=== PATIENT | male | born 1970 | race Caucasian/White ===

== ENCOUNTER 2016-12-10 19:05 | Inpatient (IN) | payer MEDICAID ==
[~2016-12-10] VITALS: Ht 182.9 cm; Wt 80.2 kg
[~2016-12-10 19:05] MED LIST: B CO PO; BACL-19 PO; DIAZ2TAB PO; DIPH25CA61 PO; DIVA125T2 PO; DOCU-131 PO; FAMO-79 PO; FOLI-17 PO; HYDR25CA PO; LITH300T3 PO; LORA-446 PO; MULT-750 PO; PHEN100C PO; PROP40TA PO; RISP1TAB45 PO; RISP2TAB35 PO; SERT100T PO; SERT50TA PO; THIA100T10 PO; TRAZ150T62 PO
[2016-12-10 19:31] LABS: DAU SCREEN DISCLAIMER
[2016-12-10 20:02] LABS: HEMOGLOBIN 13.2 g/dL (13.7-18.0); WHITE BLOOD COUNT 3.8 x10^3/uL (3.4-10)
[2016-12-10 20:14] LABS: ASPARTATE AMINO TRANSFERASE 111 U/L (15-37); BLOOD UREA NITROGEN 5 mg/dL (7-18)
[2016-12-10 20:16] LABS: ACETAMINOPHEN < 2 mcg/mL (10-30)
[2016-12-11] MEDS ORDERED: PROP10TA PO (13:49)
[2016-12-11] MEDS ORDERED: ONDANSETRON ODT 4 MG PO PRN (14:00)
[2016-12-11] MEDS ORDERED: LORazepam 1MG TABLET PO PRN ×3 (14:00)
[2016-12-11] MEDS ORDERED: ENOXAPARIN 40 MG/0.4 ML SQ SCH (14:00)
[2016-12-11] MEDS ORDERED: ONDANSETRON 2MG/ML, 2ML IVPush PRN (14:00)
[2016-12-11] MEDS ORDERED: LORazepam 2 MG/ML, 1ML IV PRN ×4 (14:00)
[2016-12-11] MEDS ORDERED: LORazepam 2 MG/ML, 1ML ONE (15:01)
[2016-12-11] MEDS ORDERED: POTASSIUM CHLORIDE 20 MEQ, MAGNESIUM SULFATE 1 GM, THIAMINE 100 MG, FOLIC ACID 1 MG, MV... IV SCH (16:30)
[2016-12-11 17:46] VITALS: BP 133/89
[2016-12-11] MEDS: ENOXAPARIN 40 MG/0.4 ML SQ SCH (18:24)
[2016-12-11] MEDS: CHLORDIAZEPOXIDE 10 MG CAPSULE PO SCH ×2 (18:24→21:27)
[2016-12-11 19:01] VITALS: BP 151/82
[2016-12-11] MEDS: LORazepam 0.5MG TABLET PO PRN (19:45)
[2016-12-11] MEDS: DIVALPROEX 125 MG TABLET.DR PO SCH (21:27)
[2016-12-12 05:19] VITALS: BP 132/89
[2016-12-12 05:20] LABS: HEMATOCRIT 39.2 % (39.2-51.8); HEMOGLOBIN 13.1 g/dL (13.7-18.0); WHITE BLOOD COUNT 3.8 x10^3/uL (3.4-10)
[2016-12-12 05:35] LABS: BLOOD UREA NITROGEN 11 mg/dL (7-18)
[2016-12-12 05:53] LABS: ASPARTATE AMINO TRANSFERASE 63 U/L (15-37)
[2016-12-12 08:02] VITALS: BP 133/86
[2016-12-12] MEDS: PROPRANOLOL 10 MG TABLET PO SCH (09:05)
[2016-12-12] MEDS: CHLORDIAZEPOXIDE 10 MG CAPSULE PO SCH (09:05)
[2016-12-12] MEDS: LORazepam 0.5MG TABLET PO PRN ×2 (09:16→14:23)
[2016-12-12] MEDS ORDERED: LORazepam 1MG TABLET ONE (14:22)
[2016-12-12 15:16] VITALS: BP 130/78
[2016-12-12] MEDS: ENOXAPARIN 40 MG/0.4 ML SQ SCH (18:32)
[2016-12-12 19:30] VITALS: BP 156/99
[2016-12-12] MEDS: DIVALPROEX 125 MG TABLET.DR PO SCH (21:20)
[2016-12-12] MEDS ORDERED: POTASSIUM CHLORIDE 20 MEQ, MAGNESIUM SULFATE 1 GM, THIAMINE 100 MG, FOLIC ACID 1 MG, MV... IV SCH (21:30)
[2016-12-13 01:09] VITALS: BP 137/92
[2016-12-13 06:45] VITALS: BP 138/88
[2016-12-13 08:55] LABS: ASPARTATE AMINO TRANSFERASE 47 U/L (15-37); BLOOD UREA NITROGEN 7 mg/dL (7-18)
[2016-12-13] MEDS: MULTIVITAMIN 1 TABLET PO SCH (09:03)
[2016-12-13] MEDS: PROPRANOLOL 10 MG TABLET PO SCH (09:03)
[2016-12-13] MEDS: FOLIC ACID 1 MG TABLET PO SCH (09:03)
[2016-12-13] MEDS: THIAMINE 100MG TABLET PO SCH (09:03)
[2016-12-13 14:50] VITALS: BP 121/81
[2016-12-13] MEDS: ENOXAPARIN 40 MG/0.4 ML SQ SCH (17:38)
[2016-12-13 19:32] VITALS: BP 149/98
[2016-12-13] MEDS: DIVALPROEX 125 MG TABLET.DR PO SCH (20:42)
[2016-12-13] MEDS: LORazepam 0.5MG TABLET PO PRN ×2 (22:40→22:41)
[2016-12-14 01:37] VITALS: BP 134/79
[2016-12-14 06:37] VITALS: BP 122/84
[2016-12-14] MEDS: MULTIVITAMIN 1 TABLET PO SCH (08:37)
[2016-12-14] MEDS: PROPRANOLOL 10 MG TABLET PO SCH (08:37)
[2016-12-14] MEDS: THIAMINE 100MG TABLET PO SCH (08:37)
[2016-12-14] MEDS: FOLIC ACID 1 MG TABLET PO SCH (08:37)
[2016-12-14 10:18] VITALS: BP 123/90
[2016-12-14] MEDS: ENOXAPARIN 40 MG/0.4 ML SQ SCH (17:08)
[2016-12-14 19:22] VITALS: BP 119/80
[2016-12-14] MEDS: DIVALPROEX 125 MG TABLET.DR PO SCH (20:05)
[2016-12-14] MEDS: TRAZODONE 100MG TABLET PO PRN (21:03)
[2016-12-15 07:50] VITALS: BP 117/79
[2016-12-15] MEDS: MULTIVITAMIN 1 TABLET PO SCH (08:24)
[2016-12-15] MEDS: FOLIC ACID 1 MG TABLET PO SCH (08:24)
[2016-12-15] MEDS: THIAMINE 100MG TABLET PO SCH (08:24)
[2016-12-15] MEDS: PROPRANOLOL 10 MG TABLET PO SCH (08:25)
[2016-12-15] MEDS: ENOXAPARIN 40 MG/0.4 ML SQ SCH (18:24)
[2016-12-15 19:15] VITALS: BP 117/78
[2016-12-15] MEDS: DIVALPROEX 125 MG TABLET.DR PO SCH (20:13)
[2016-12-15] MEDS: TRAZODONE 100MG TABLET PO PRN (21:36)
[2016-12-16 07:48] VITALS: BP 109/79
[2016-12-16] MEDS: THIAMINE 100MG TABLET PO SCH (08:37)
[2016-12-16] MEDS: MULTIVITAMIN 1 TABLET PO SCH (08:37)
[2016-12-16] MEDS: PROPRANOLOL 10 MG TABLET PO SCH (08:37)
[2016-12-16] MEDS: FOLIC ACID 1 MG TABLET PO SCH (08:37)
== END 2016-12-16 17:04 | DRG 897 ==
LOC: ED 19:54 → EDIP 12-11 12:28 → 3NE 12-11 16:20 → 3E 12-14 10:14
PROVIDERS: ADMIT Family Medicine; ATTEND Family Medicine
DX: F10.239 Alcohol dependence with withdrawal, unspecified (principal); E87.0 Hyperosmolality and hypernatremia; R45.851 Suicidal ideations; E44.0 Moderate protein-calorie malnutrition; F32.9 Major depressive disorder, single episode, unspecified; E83.42 Hypomagnesemia; F10.220 Alcohol dependence with intoxication, uncomplicated; F41.9 Anxiety disorder, unspecified; G40.909 Epilepsy, unspecified, not intractable, without status epilepticus; R79.89 Other specified abnormal findings of blood chemistry; Z59.0 Homelessness; Z82.49 Family history of ischemic heart disease and other diseases of the circulatory system; Z83.3 Family history of diabetes mellitus; Z87.891 Personal history of nicotine dependence
CPT/HCPCS: 36415; 80053; 80307; 80329; 83735; 84100; 85025; 96374; J1650; J3411; J3475; J3480; G0480; J2060; J7030

== ENCOUNTER 2017-04-12 07:39 | Inpatient (IN) | payer MEDICAID ==
[~2017-04-12] VITALS: Ht 182.9 cm; Wt 86.2 kg
[~2017-04-12 07:39] MED LIST changes: +PROP10TA PO
[2017-04-12] MEDS ORDERED: SERT100T PO (08:01)
[2017-04-12] MEDS ORDERED: HYDR50TA13 PO (08:01)
[2017-04-12] MEDS ORDERED: ONDANSETRON 2MG/ML, 2ML IVPush ONE (08:30)
[2017-04-12 08:38] LABS: BASOPHILS # (AUTO) 0.04 x10^3/uL (0-0.1); BASOPHILS % (AUTO) 1 % (0-1); EOSINOPHILS # (AUTO) 0.06 x10^3/uL (0-0.4); EOSINOPHILS % (AUTO) 1 % (1-7); LYMPHOCYTES # (AUTO) 0.92 x10^3/uL (1-3.4); LYMPHOCYTES % (AUTO) 20 % (22-44); MD NO; MEAN CORPUSCULAR HEMOGLOBIN 32.7 pg (27.5-34.5); MEAN CORPUSCULAR HGB CONC 34.1 g/dL (33.2-36.2); MEAN CORPUSCULAR VOLUME 96.1 fL (81-97); MEAN PLATELET VOLUME 7.6 fL (7.4-10.4); MONOCYTES # (AUTO) 0.47 x10^3/uL (0.2-0.8); MONOCYTES % (AUTO) 10 % (2-9); NEUTROPHILS # (AUTO) 3.11 x10^3/uL (1.8-6.8); NEUTROPHILS % (AUTO) 68 % (42-75); PLATELET COUNT 256 x10^3/uL (130-400); RED BLOOD COUNT 4.23 x10^6/uL (4.38-5.82); RED CELL DISTRIBUTION WIDTH 15.6 % (9.4-14.8)
[2017-04-12 08:46] LABS: ANION GAP 8 mmol/L (5-15); CALCIUM 8.2 mg/dL (8.5-10.1); CHLORIDE 109 mmol/L (98-107); CREATININE 1.11 mg/dL (0.7-1.3)
[2017-04-12 08:47] LABS: ALANINE AMINOTRANSFERASE 82 U/L (12-78); ALBUMIN 3.6 g/dL (3.4-5.0)
[2017-04-12 08:49] LABS: ALKALINE PHOSPHATASE 56 U/L (45-117); BILIRUBIN,TOTAL 0.4 mg/dL (0.2-1.0); TOTAL PROTEIN 7.3 g/dL (6.4-8.2)
[2017-04-12 08:51] LABS: ACETAMINOPHEN < 2 mcg/mL (10-30); SALICYLATE LEVEL < 1.7 mg/dL (2.8-20.0)
[2017-04-12 09:23] LABS: AMPHETAMINE SCREEN, URINE Negative (Negative); BARBITURATE SCREEN, URINE Negative (Negative); BENZODIAZEPINE SCREEN, URINE Negative (Negative); CANNABINOID SCREEN, URINE Negative (Negative); COCAINE SCREEN, URINE Negative (Negative); METHADONE SCREEN, URINE Negative (Negative); OPIATE SCREEN, URINE Negative (Negative)
[2017-04-12 16:37] VITALS: BP 118/84
[2017-04-12] MEDS: THIAMINE 100 MG, MVI ADULT 10 ML, FOLIC ACID 1 MG in D5%-0.9% NACL 1,000 ML IV SCH (20:24)
[2017-04-12 20:28] VITALS: BP 112/76
[2017-04-13 03:23] VITALS: BP 124/82
[2017-04-13 04:08] LABS: BASOPHILS # (AUTO) 0.08 x10^3/uL (0-0.1); BASOPHILS % (AUTO) 1 % (0-1); EOSINOPHILS # (AUTO) 0.11 x10^3/uL (0-0.4); EOSINOPHILS % (AUTO) 2 % (1-7); LYMPHOCYTES # (AUTO) 1.51 x10^3/uL (1-3.4); LYMPHOCYTES % (AUTO) 23 % (22-44); MD NO; MEAN CORPUSCULAR HEMOGLOBIN 32.3 pg (27.5-34.5); MEAN CORPUSCULAR HGB CONC 33.5 g/dL (33.2-36.2); MEAN CORPUSCULAR VOLUME 96.3 fL (81-97); MEAN PLATELET VOLUME 7.6 fL (7.4-10.4); MONOCYTES # (AUTO) 0.75 x10^3/uL (0.2-0.8); MONOCYTES % (AUTO) 11 % (2-9); NEUTROPHILS # (AUTO) 4.17 x10^3/uL (1.8-6.8); NEUTROPHILS % (AUTO) 63 % (42-75); PLATELET COUNT 289 x10^3/uL (130-400); RED BLOOD COUNT 4.51 x10^6/uL (4.38-5.82); RED CELL DISTRIBUTION WIDTH 15.6 % (9.4-14.8)
[2017-04-13 04:19] LABS: ALBUMIN 3.4 g/dL (3.4-5.0); ANION GAP 5 mmol/L (5-15); CALCIUM 8.6 mg/dL (8.5-10.1); CHLORIDE 109 mmol/L (98-107)
[2017-04-13 04:23] LABS: ALANINE AMINOTRANSFERASE 67 U/L (12-78); ALKALINE PHOSPHATASE 54 U/L (45-117); BILIRUBIN,TOTAL 0.6 mg/dL (0.2-1.0); CREATININE 1.19 mg/dL (0.7-1.3); TOTAL PROTEIN 7.1 g/dL (6.4-8.2)
[2017-04-13] MEDS: THIAMINE 100 MG, MVI ADULT 10 ML, FOLIC ACID 1 MG in D5%-0.9% NACL 1,000 ML IV SCH ×2 (06:25→17:59)
[2017-04-13 06:35] VITALS: BP 135/91
[2017-04-13 16:05] VITALS: BP 132/83
[2017-04-13 19:11] VITALS: BP 124/82
[2017-04-14 02:09] VITALS: BP 127/87
[2017-04-14] MEDS: THIAMINE 100 MG, MVI ADULT 10 ML, FOLIC ACID 1 MG in D5%-0.9% NACL 1,000 ML IV SCH (04:44)
[2017-04-14 07:23] VITALS: BP 119/91
[2017-04-14 13:20] VITALS: BP 135/93
[2017-04-14 19:11] VITALS: BP 128/88
[2017-04-15 02:59] VITALS: BP 127/82
[2017-04-15 08:00] VITALS: BP 133/86
[2017-04-15 15:58] VITALS: BP 127/83
[2017-04-15 20:59] VITALS: BP 125/88
[2017-04-15] MEDS: LORazepam 2 MG/ML, 1ML IVPush PRN (22:01)
[2017-04-16 02:43] VITALS: BP 126/86
[2017-04-16 08:49] VITALS: BP 117/84
[2017-04-16 13:23] VITALS: BP 121/80
[2017-04-16 20:40] VITALS: BP 119/82
[2017-04-16] MEDS: LORazepam 2 MG/ML, 1ML IVPush PRN (22:32)
[2017-04-17 02:00] VITALS: BP 115/78
[2017-04-17 04:28] VITALS: BP 114/77
[2017-04-17 09:00] VITALS: BP 107/82
[2017-04-17 15:55] VITALS: BP 121/85
[2017-04-17 18:34] VITALS: BP 129/88
== END 2017-04-18 01:28 | DRG 918 ==
LOC: ED 09:00 → EDIP 13:45 → 4NOR 14:55 → 4WST 16:15 → 4EST 04-16 19:31
PROVIDERS: ADMIT Internal Medicine; ATTEND Internal Medicine
DX: T43.592A Poisoning by other antipsychotics and neuroleptics, intentional self-harm, initial encounter (principal); K70.9 Alcoholic liver disease, unspecified; F10.10 Alcohol abuse, uncomplicated; F32.9 Major depressive disorder, single episode, unspecified; F41.9 Anxiety disorder, unspecified; G40.909 Epilepsy, unspecified, not intractable, without status epilepticus; Y92.89 Other specified places as the place of occurrence of the external cause; Z82.49 Family history of ischemic heart disease and other diseases of the circulatory system; Z87.891 Personal history of nicotine dependence; Z83.3 Family history of diabetes mellitus; Z87.81 Personal history of (healed) traumatic fracture; Z59.0 Homelessness
CPT/HCPCS: 36415; 80053; 80307; 80329; 83735; 84100; 85025; 93005; 96372; 96374; 99285; J3411; J7042; G0479; G0480; J2060

== ENCOUNTER 2017-05-04 06:20 | Emergency (ER) | payer MEDICAID ==
[~2017-05-04] VITALS: Ht 182.9 cm; Wt 81.9 kg
[~2017-05-04 06:20] MED LIST changes: +HYDR50TA13 PO
[2017-05-04] MEDS ORDERED: DEPAKOTE (06:28)
[2017-05-04 06:56] VITALS: BP 120/91
[2017-05-04] MEDS ORDERED: BACITRACIN ZINC OINT 500U/GM, 0.9 GM ONE (07:36)
== END 2017-05-04 08:11 | disposition home or self-care (01) ==
LOC: ED 06:38
DX: S01.21XA Laceration without foreign body of nose, initial encounter (principal); G40.909 Epilepsy, unspecified, not intractable, without status epilepticus; F10.20 Alcohol dependence, uncomplicated; W10.9XXA Fall (on) (from) unspecified stairs and steps, initial encounter; Y93.89 Activity, other specified; Y92.89 Other specified places as the place of occurrence of the external cause; Y99.8 Other external cause status
CPT/HCPCS: 70450; 72125; 99284

== ENCOUNTER 2017-05-31 18:08 | Emergency (ER) | payer MEDICAID ==
[~2017-05-31] VITALS: Ht 180.3 cm; Wt 77.0 kg
[~2017-05-31 18:08] MED LIST changes: +DEPAKOTE; -SERT100T PO; +SERT20OR PO
[2017-05-31 21:32] VITALS: BP 110/73
== END 2017-06-01 01:01 | disposition home or self-care (01) ==
LOC: ED 20:42
DX: F10.220 Alcohol dependence with intoxication, uncomplicated (principal)
CPT/HCPCS: 99283

== ENCOUNTER 2017-06-03 14:58 | Observation (INO) | payer MEDICAID ==
[~2017-06-03] VITALS: Ht 162.6 cm; Wt 80.0 kg
[~2017-06-03 14:58] MED LIST changes: +SERT100T PO; -SERT20OR PO
[2017-06-03] MEDS ORDERED: HYDROmorphone 2 MG/ML, 1ML ONE (15:04)
[2017-06-03] MEDS ORDERED: ONDANSETRON 2MG/ML, 2ML ONE (15:04)
[2017-06-03] MEDS ORDERED: KETOROLAC 30 MG/1 ML ONE (15:04)
[2017-06-03] MEDS ORDERED: ESCI20TA10 PO (15:27)
[2017-06-03] MEDS ORDERED: TRAZ100T15 PO (15:27)
[2017-06-03] MEDS ORDERED: LORazepam 1MG TABLET PO ONE (16:00)
[2017-06-03 16:03] LABS: ALANINE AMINOTRANSFERASE 69 U/L (12-78); ALBUMIN 3.5 g/dL (3.4-5.0); ANION GAP 13 mmol/L (5-15); CALCIUM 8.3 mg/dL (8.5-10.1); CHLORIDE 104 mmol/L (98-107); CREATININE 1.21 mg/dL (0.7-1.3)
[2017-06-03 16:05] LABS: ALKALINE PHOSPHATASE 72 U/L (45-117); BILIRUBIN,TOTAL 0.5 mg/dL (0.2-1.0); TOTAL PROTEIN 7.1 g/dL (6.4-8.2)
[2017-06-03] MEDS ORDERED: LORazepam 1MG TABLET ONE ×2 (16:15→19:28)
[2017-06-03 16:18] LABS: ACETAMINOPHEN < 2 mcg/mL (10-30); SALICYLATE LEVEL < 1.7 mg/dL (2.8-20.0)
[2017-06-03 16:33] LABS: AMPHETAMINE SCREEN, URINE Negative (Negative); BARBITURATE SCREEN, URINE Negative (Negative); BENZODIAZEPINE SCREEN, URINE Negative (Negative); CANNABINOID SCREEN, URINE Negative (Negative); COCAINE SCREEN, URINE Negative (Negative); METHADONE SCREEN, URINE Negative (Negative); OPIATE SCREEN, URINE Negative (Negative)
[2017-06-03 16:52] LABS: BASOPHILS # (AUTO) 0.02 x10^3/uL (0-0.1); BASOPHILS % (AUTO) 0 % (0-1); EOSINOPHILS # (AUTO) 0.02 x10^3/uL (0-0.4); EOSINOPHILS % (AUTO) 1 % (1-7); LYMPHOCYTES # (AUTO) 0.95 x10^3/uL (1-3.4); LYMPHOCYTES % (AUTO) 18 % (22-44); MD NO; MEAN CORPUSCULAR HEMOGLOBIN 32.1 pg (27.5-34.5); MEAN CORPUSCULAR HGB CONC 33.6 g/dL (33.2-36.2); MEAN CORPUSCULAR VOLUME 95.6 fL (81-97); MEAN PLATELET VOLUME 7.9 fL (7.4-10.4); MONOCYTES # (AUTO) 0.37 x10^3/uL (0.2-0.8); MONOCYTES % (AUTO) 7 % (2-9); NEUTROPHILS # (AUTO) 3.95 x10^3/uL (1.8-6.8); NEUTROPHILS % (AUTO) 74 % (42-75); PLATELET COUNT 213 x10^3/uL (130-400); RED BLOOD COUNT 4.15 x10^6/uL (4.38-5.82); RED CELL DISTRIBUTION WIDTH 16.6 % (9.4-14.8)
[2017-06-03] MEDS ORDERED: LORazepam 2 MG/ML, 1ML IM PRN ×2 (17:30)
[2017-06-03] MEDS ORDERED: LORazepam 1MG TABLET PO PRN (17:30)
[2017-06-03] MEDS ORDERED: ACETAMINOPHEN 325 MG TABLET PO PRN (17:30)
[2017-06-03] MEDS ORDERED: THIAMINE 100MG TABLET ONE (19:27)
[2017-06-03] MEDS: CHLORDIAZEPOXIDE 10 MG CAPSULE PO SCH (19:41)
[2017-06-03] MEDS: THIAMINE 100MG TABLET PO SCH (19:41)
[2017-06-03] MEDS ORDERED: TRAZODONE 100MG TABLET PO SCH (21:00)
[2017-06-04] MEDS ORDERED: CHLORDIAZEPOXIDE 10 MG CAPSULE ONE ×2 (00:51→07:23)
[2017-06-04] MEDS: CHLORDIAZEPOXIDE 10 MG CAPSULE PO SCH ×2 (01:42→07:46)
[2017-06-04] MEDS ORDERED: THIAMINE 100MG TABLET ONE (08:58)
[2017-06-04] MEDS ORDERED: MULTIVITAMIN 1 TABLET PO SCH (09:00)
[2017-06-04] MEDS ORDERED: FOLIC ACID 1 MG TABLET PO SCH (09:00)
[2017-06-04] MEDS ORDERED: TEMPLATE NON-FORMULARY MED. (Escitalopram Oxalate** (Lexapro**) 20 MG) PO SCH (09:00)
[2017-06-04] MEDS: THIAMINE 100MG TABLET PO SCH (09:11)
[2017-06-04 13:25] VITALS: BP 138/85
== END 2017-06-04 14:13 ==
LOC: ED 15:54 → EDIP 15:55 → ED 16:23
PROVIDERS: ADMIT Internal Medicine; ATTEND Internal Medicine
DX: R45.851 Suicidal ideations (principal); F32.9 Major depressive disorder, single episode, unspecified; F10.20 Alcohol dependence, uncomplicated; F41.1 Generalized anxiety disorder; Z91.5 Personal history of self-harm
CPT/HCPCS: 36415; 80053; 80307; 80329; 85025; 99285; G0378; G0480

== ENCOUNTER 2017-08-03 12:38 | Emergency (ER) | payer MEDICAID ==
[~2017-08-03] VITALS: Ht 182.9 cm; Wt 82.0 kg
[~2017-08-03 12:38] MED LIST changes: +ESCI20TA10 PO; +TRAZ100T15 PO
[2017-08-03] MEDS ORDERED: SODIUM CHLORIDE FLUSH 10ML SYR IVF ONE ×2 (13:30→14:30)
[2017-08-03] MEDS ORDERED: ONDANSETRON ODT 4 MG PO ONE (13:30)
[2017-08-03 13:39] LABS: BASOPHILS # (AUTO) 0.02 x10^3/uL (0-0.1); BASOPHILS % (AUTO) 0 % (0-1); EOSINOPHILS % (AUTO) 0 % (1-7); LYMPHOCYTES # (AUTO) 1.21 x10^3/uL (1-3.4); LYMPHOCYTES % (AUTO) 19 % (22-44); MD NO; MEAN CORPUSCULAR HEMOGLOBIN 32.3 pg (27.5-34.5); MEAN CORPUSCULAR HGB CONC 34.6 g/dL (33.2-36.2); MEAN CORPUSCULAR VOLUME 93.2 fL (81-97); MEAN PLATELET VOLUME 7.5 fL (7.4-10.4); MONOCYTES # (AUTO) 0.55 x10^3/uL (0.2-0.8); MONOCYTES % (AUTO) 9 % (2-9); NEUTROPHILS # (AUTO) 4.66 x10^3/uL (1.8-6.8); NEUTROPHILS % (AUTO) 72 % (42-75); PLATELET COUNT 222 x10^3/uL (130-400); RED BLOOD COUNT 4.69 x10^6/uL (4.38-5.82); RED CELL DISTRIBUTION WIDTH 14.3 % (9.4-14.8)
[2017-08-03 13:49] LABS: CHLORIDE 99 mmol/L (98-107)
[2017-08-03 13:55] LABS: ALANINE AMINOTRANSFERASE 37 U/L (12-78); ALBUMIN 3.8 g/dL (3.4-5.0); ALKALINE PHOSPHATASE 58 U/L (45-117); ANION GAP 12 mmol/L (5-15); BILIRUBIN,TOTAL 0.5 mg/dL (0.2-1.0); CALCIUM 8.2 mg/dL (8.5-10.1); CREATININE 1.01 mg/dL (0.7-1.3)
[2017-08-03] MEDS ORDERED: ONDANSETRON ODT 4 MG ONE (14:18)
[2017-08-03 14:25] LABS: SALICYLATE LEVEL < 1.7 mg/dL (2.8-20.0)
[2017-08-03 14:26] LABS: ACETAMINOPHEN < 2 mcg/mL (10-30)
[2017-08-03] MEDS ORDERED: LORazepam 2 MG/ML, 1ML ONE (14:30)
[2017-08-03] MEDS ORDERED: LORazepam 1MG TABLET PO ONE ×3 (14:30→18:30)
[2017-08-03] MEDS ORDERED: SODIUM CHLORIDE 0.9% 1,000ML IVBOLUS ONE (14:30)
[2017-08-03] MEDS ORDERED: LORazepam 1MG TABLET ONE ×3 (14:58→18:20)
[2017-08-03 19:22] LABS: AMPHETAMINE SCREEN, URINE Negative (Negative); BARBITURATE SCREEN, URINE Negative (Negative); BENZODIAZEPINE SCREEN, URINE Negative (Negative); CANNABINOID SCREEN, URINE Negative (Negative); COCAINE SCREEN, URINE Negative (Negative); METHADONE SCREEN, URINE Negative (Negative); OPIATE SCREEN, URINE Negative (Negative)
[2017-08-04] MEDS ORDERED: LORazepam 1MG TABLET PO ONE
[2017-08-04] MEDS ORDERED: LORazepam 1MG TABLET ONE (00:01)
[2017-08-04 00:53] VITALS: BP 110/71
== END 2017-08-04 00:56 | disposition home or self-care (01) ==
LOC: ED 16:42
DX: F10.220 Alcohol dependence with intoxication, uncomplicated (principal); F32.9 Major depressive disorder, single episode, unspecified; G40.909 Epilepsy, unspecified, not intractable, without status epilepticus; R45.851 Suicidal ideations; Z79.899 Other long term (current) drug therapy
CPT/HCPCS: 36415; 80053; 80307; 80329; 85025; 93005; 96360; 96361; 99285; J7030; Q0162; G0480

== ENCOUNTER 2017-10-29 22:25 | Emergency (ER) | payer MEDICAID ==
[~2017-10-29] VITALS: Ht 182.9 cm; Wt 76.6 kg
[2017-10-30 01:04] VITALS: BP 132/86
== END 2017-10-30 01:51 | disposition home or self-care (01) ==
LOC: ED 23:59
DX: F10.120 Alcohol abuse with intoxication, uncomplicated (principal); Z72.9 Problem related to lifestyle, unspecified; F32.9 Major depressive disorder, single episode, unspecified; G40.909 Epilepsy, unspecified, not intractable, without status epilepticus
CPT/HCPCS: 99283

== ENCOUNTER 2017-11-24 04:41 | Inpatient (IN) | payer MEDICAID ==
[~2017-11-24] VITALS: Ht 182.9 cm; Wt 75.1 kg
[~2017-11-24 04:41] MED LIST changes: +TRAZ-137 PO; -TRAZ100T15 PO
[2017-11-24] MEDS ORDERED: SODIUM CHLORIDE 0.9% 1,000 ML IV ONE (05:31)
[2017-11-24] MEDS ORDERED: LORazepam 2 MG/ML, 1ML IVPush PRN (06:00)
[2017-11-24] MEDS ORDERED: ONDANSETRON 2MG/ML, 2ML IVPush ONE (06:00)
[2017-11-24] MEDS ORDERED: SODIUM CHLORIDE 0.9% 1,000ML IVBOLUS ONE (06:00)
[2017-11-24] MEDS ORDERED: THIAMINE 100 MG in SODIUM CHLORIDE 0.9% 50 ML IVPB ONE (06:00)
[2017-11-24 06:14] LABS: BASOPHILS # (AUTO) 0.01 x10^3/uL (0-0.1); BASOPHILS % (AUTO) 0 % (0-1); EOSINOPHILS # (AUTO) 0.01 x10^3/uL (0-0.4); EOSINOPHILS % (AUTO) 0 % (1-7); LYMPHOCYTES # (AUTO) 0.47 x10^3/uL (1-3.4); LYMPHOCYTES % (AUTO) 10 % (22-44); MD NO; MEAN CORPUSCULAR HEMOGLOBIN 34.3 pg (27.5-34.5); MEAN CORPUSCULAR HGB CONC 34.2 g/dL (33.2-36.2); MEAN CORPUSCULAR VOLUME 100.3 fL (81-97); MEAN PLATELET VOLUME 7.6 fL (7.4-10.4); MONOCYTES # (AUTO) 0.39 x10^3/uL (0.2-0.8); MONOCYTES % (AUTO) 8 % (2-9); NEUTROPHILS # (AUTO) 3.83 x10^3/uL (1.8-6.8); NEUTROPHILS % (AUTO) 81 % (42-75); PLATELET COUNT 118 x10^3/uL (130-400); RED BLOOD COUNT 4.05 x10^6/uL (4.38-5.82); RED CELL DISTRIBUTION WIDTH 14.9 % (9.4-14.8)
[2017-11-24 06:24] LABS: ALANINE AMINOTRANSFERASE 92 U/L (12-78); ALBUMIN 3.6 g/dL (3.4-5.0); ANION GAP 11 mmol/L (5-15); CALCIUM 8.6 mg/dL (8.5-10.1); CHLORIDE 102 mmol/L (98-107); CREATININE 0.97 mg/dL (0.7-1.3)
[2017-11-24 06:26] LABS: ALKALINE PHOSPHATASE 80 U/L (45-117); TOTAL PROTEIN 7.2 g/dL (6.4-8.2)
[2017-11-24] MEDS ORDERED: ONDANSETRON 2MG/ML, 2ML ONE (06:29)
[2017-11-24] MEDS ORDERED: LORazepam 2 MG/ML, 1ML ONE (06:29)
[2017-11-24] MEDS: HEPARIN 5,000 UNITS/ML, 1ML SQ SCH ×2 (08:00→15:56)
[2017-11-24] MEDS ORDERED: ACETAMINOPHEN 325 MG TABLET PO PRN (08:00)
[2017-11-24] MEDS ORDERED: LABETALOL 5MG/ML, 20ML IVPush PRN (08:00)
[2017-11-24] MEDS ORDERED: ONDANSETRON 2MG/ML, 2ML IVPush PRN (08:00)
[2017-11-24] MEDS ORDERED: ENALAPRILAT 1.25 MG/ML, 2ML IVPush PRN (08:00)
[2017-11-24 08:21] VITALS: BP 130/88
[2017-11-24] MEDS: NS + 20MEQ KCL 1,000 ML IV SCH ×3 (08:42→22:20)
[2017-11-24] MEDS: DIVALPROEX 250 MG TABLET.DR PO SCH ×2 (08:43→20:49)
[2017-11-24] MEDS: CYANOCOBALAMIN 1,000 MCG TABLET PO SCH (08:43)
[2017-11-24] MEDS: GABAPENTIN 100 MG CAPSULE PO SCH ×3 (08:44→20:49)
[2017-11-24] MEDS: CITALOPRAM 20 MG TABLET PO SCH (08:44)
[2017-11-24] MEDS: CHLORDIAZEPOXIDE 25 MG CAPSULE PO SCH ×2 (08:53→20:48)
[2017-11-24] MEDS: THIAMINE 100MG TABLET PO SCH ×2 (08:55→20:48)
[2017-11-24 13:30] VITALS: BP 131/72
[2017-11-24] MEDS: LORazepam 2 MG/ML, 1ML IVPush PRN ×2 (13:46→20:58)
[2017-11-24 14:43] LABS: OCCULT BLOOD NEGATIVE (NEGATIVE)
[2017-11-24 19:26] VITALS: BP 120/81
[2017-11-24] MEDS: TRAZODONE 100MG TABLET PO SCH (20:49)
[2017-11-25] MEDS: HEPARIN 5,000 UNITS/ML, 1ML SQ SCH ×3 (00:18→16:08)
[2017-11-25 01:22] VITALS: BP 129/88
[2017-11-25] MEDS: LORazepam 2 MG/ML, 1ML IVPush PRN ×5 (02:49→21:43)
[2017-11-25 04:38] LABS: ANION GAP 7 mmol/L (5-15); CALCIUM 7.8 mg/dL (8.5-10.1); CHLORIDE 110 mmol/L (98-107); CREATININE 0.84 mg/dL (0.7-1.3)
[2017-11-25 04:40] LABS: MEAN CORPUSCULAR HEMOGLOBIN 34.4 pg (27.5-34.5); MEAN CORPUSCULAR HGB CONC 34.1 g/dL (33.2-36.2); MEAN CORPUSCULAR VOLUME 100.6 fL (81-97); MEAN PLATELET VOLUME 8.3 fL (7.4-10.4); PLATELET COUNT 90 x10^3/uL (130-400); RED CELL DISTRIBUTION WIDTH 14.9 % (9.4-14.8)
[2017-11-25 05:04] LABS: BASOPHILS # (AUTO) 0.01 x10^3/uL (0-0.1); BASOPHILS % (AUTO) 0 % (0-1); EOSINOPHILS # (AUTO) 0.05 x10^3/uL (0-0.4); EOSINOPHILS % (AUTO) 2 % (1-7); LYMPHOCYTES % (AUTO) 22 % (22-44); MD SCAN; MONOCYTES # (AUTO) 0.16 x10^3/uL (0.2-0.8); MONOCYTES % (AUTO) 6 % (2-9); NEUTROPHILS # (AUTO) 1.91 x10^3/uL (1.8-6.8); NEUTROPHILS % (AUTO) 70 % (42-75)
[2017-11-25] MEDS: NS + 20MEQ KCL 1,000 ML IV SCH ×3 (05:10→22:32)
[2017-11-25 08:10] VITALS: BP 117/78
[2017-11-25] MEDS ORDERED: MAGNESIUM SULFATE PMX 2GM/50ML 50 ML IV ONE (08:30)
[2017-11-25] MEDS: CITALOPRAM 20 MG TABLET PO SCH (09:25)
[2017-11-25] MEDS: CHLORDIAZEPOXIDE 25 MG CAPSULE PO SCH ×2 (09:26→21:44)
[2017-11-25] MEDS: THIAMINE 100MG TABLET PO SCH ×2 (09:26→21:44)
[2017-11-25] MEDS: DIVALPROEX 250 MG TABLET.DR PO SCH ×2 (09:26→21:44)
[2017-11-25] MEDS: GABAPENTIN 100 MG CAPSULE PO SCH ×3 (09:26→21:44)
[2017-11-25] MEDS: CYANOCOBALAMIN 1,000 MCG TABLET PO SCH (09:27)
[2017-11-25 13:00] VITALS: BP 110/74
[2017-11-25 19:13] VITALS: BP 106/71
[2017-11-25 20:52] VITALS: BP 118/79
[2017-11-25] MEDS: TRAZODONE 100MG TABLET PO SCH (21:44)
[2017-11-26 01:10] VITALS: BP 110/73
[2017-11-26] MEDS: HEPARIN 5,000 UNITS/ML, 1ML SQ SCH ×3 (01:17→16:18)
[2017-11-26 04:49] LABS: MEAN CORPUSCULAR HEMOGLOBIN 34.1 pg (27.5-34.5); MEAN CORPUSCULAR HGB CONC 33.9 g/dL (33.2-36.2); MEAN CORPUSCULAR VOLUME 100.8 fL (81-97); MEAN PLATELET VOLUME 8.8 fL (7.4-10.4); PLATELET COUNT 91 x10^3/uL (130-400); RED BLOOD COUNT 3.66 x10^6/uL (4.38-5.82); RED CELL DISTRIBUTION WIDTH 14.6 % (9.4-14.8)
[2017-11-26 04:58] LABS: ANION GAP 7 mmol/L (5-15); CHLORIDE 110 mmol/L (98-107)
[2017-11-26 05:02] LABS: CALCIUM 8.4 mg/dL (8.5-10.1); CREATININE 0.85 mg/dL (0.7-1.3)
[2017-11-26] MEDS: NS + 20MEQ KCL 1,000 ML IV SCH ×3 (05:10→20:20)
[2017-11-26 05:26] LABS: BASOPHILS # (AUTO) 0.02 x10^3/uL (0-0.1); BASOPHILS % (AUTO) 1 % (0-1); EOSINOPHILS # (AUTO) 0.06 x10^3/uL (0-0.4); EOSINOPHILS % (AUTO) 2 % (1-7); LYMPHOCYTES # (AUTO) 0.64 x10^3/uL (1-3.4); LYMPHOCYTES % (AUTO) 18 % (22-44); MD SCAN; MONOCYTES # (AUTO) 0.24 x10^3/uL (0.2-0.8); MONOCYTES % (AUTO) 7 % (2-9); NEUTROPHILS # (AUTO) 2.57 x10^3/uL (1.8-6.8); NEUTROPHILS % (AUTO) 73 % (42-75)
[2017-11-26 07:16] VITALS: BP 123/84
[2017-11-26] MEDS: CITALOPRAM 20 MG TABLET PO SCH (08:17)
[2017-11-26] MEDS: THIAMINE 100MG TABLET PO SCH ×2 (08:17→20:18)
[2017-11-26] MEDS: CHLORDIAZEPOXIDE 25 MG CAPSULE PO SCH ×2 (08:18→20:19)
[2017-11-26] MEDS: GABAPENTIN 100 MG CAPSULE PO SCH ×3 (08:18→20:19)
[2017-11-26] MEDS: CYANOCOBALAMIN 1,000 MCG TABLET PO SCH (08:18)
[2017-11-26] MEDS: DIVALPROEX 250 MG TABLET.DR PO SCH ×2 (08:19→20:19)
[2017-11-26] MEDS: LORazepam 2 MG/ML, 1ML IVPush PRN ×2 (10:04→16:18)
[2017-11-26 12:41] VITALS: BP 100/67
[2017-11-26] MEDS: TRAZODONE 100MG TABLET PO SCH (20:19)
[2017-11-26 20:22] VITALS: BP 128/87
[2017-11-27] MEDS: HEPARIN 5,000 UNITS/ML, 1ML SQ SCH ×3 (00:20→16:00)
[2017-11-27 01:43] VITALS: BP 132/89
[2017-11-27] MEDS: NS + 20MEQ KCL 1,000 ML IV SCH ×3 (03:54→16:20)
[2017-11-27 04:41] LABS: MEAN CORPUSCULAR HEMOGLOBIN 34.6 pg (27.5-34.5); MEAN CORPUSCULAR HGB CONC 34.5 g/dL (33.2-36.2); MEAN CORPUSCULAR VOLUME 100.2 fL (81-97); RED BLOOD COUNT 3.67 x10^6/uL (4.38-5.82); RED CELL DISTRIBUTION WIDTH 14.5 % (9.4-14.8)
[2017-11-27 04:52] LABS: ALBUMIN 2.6 g/dL (3.4-5.0); ANION GAP 5 mmol/L (5-15); CALCIUM 8.3 mg/dL (8.5-10.1); CHLORIDE 110 mmol/L (98-107)
[2017-11-27 04:56] LABS: ALANINE AMINOTRANSFERASE 61 U/L (12-78); ALKALINE PHOSPHATASE 62 U/L (45-117); BILIRUBIN,TOTAL 0.5 mg/dL (0.2-1.0); CREATININE 0.98 mg/dL (0.7-1.3)
[2017-11-27 05:16] LABS: BASOPHILS # (AUTO) 0.01 x10^3/uL (0-0.1); BASOPHILS % (AUTO) 0 % (0-1); EOSINOPHILS # (AUTO) 0.05 x10^3/uL (0-0.4); EOSINOPHILS % (AUTO) 2 % (1-7); LYMPHOCYTES # (AUTO) 0.79 x10^3/uL (1-3.4); LYMPHOCYTES % (AUTO) 24 % (22-44); MD SCAN; MEAN PLATELET VOLUME 8.6 fL (7.4-10.4); MONOCYTES # (AUTO) 0.27 x10^3/uL (0.2-0.8); MONOCYTES % (AUTO) 8 % (2-9); NEUTROPHILS % (AUTO) 66 % (42-75); PLATELET COUNT 84 x10^3/uL (130-400)
[2017-11-27 07:41] VITALS: BP 126/90
[2017-11-27] MEDS: CITALOPRAM 20 MG TABLET PO SCH (10:02)
[2017-11-27] MEDS: THIAMINE 100MG TABLET PO SCH (10:02)
[2017-11-27] MEDS: DIVALPROEX 250 MG TABLET.DR PO SCH (10:02)
[2017-11-27] MEDS: CHLORDIAZEPOXIDE 25 MG CAPSULE PO SCH (10:02)
[2017-11-27] MEDS: GABAPENTIN 100 MG CAPSULE PO SCH ×2 (10:02→16:00)
[2017-11-27] MEDS: CYANOCOBALAMIN 1,000 MCG TABLET PO SCH (10:03)
[2017-11-27 13:58] VITALS: BP 137/92
== END 2017-11-27 16:37 | DRG 439 ==
LOC: ED 06:19 → EDIP 07:02 → 3NW 07:46 → DCLOUNGE 11-27 16:29
PROVIDERS: ADMIT Hospitalist; ATTEND Hospitalist
DX: K85.90 Acute pancreatitis without necrosis or infection, unspecified (principal); E87.1 Hypo-osmolality and hyponatremia; F10.239 Alcohol dependence with withdrawal, unspecified; F32.9 Major depressive disorder, single episode, unspecified; F41.9 Anxiety disorder, unspecified; R74.0 Nonspecific elevation of levels of transaminase and lactic acid dehydrogenase [LDH]; F22 Delusional disorders; G40.909 Epilepsy, unspecified, not intractable, without status epilepticus; Z82.49 Family history of ischemic heart disease and other diseases of the circulatory system; Z83.3 Family history of diabetes mellitus; Z87.891 Personal history of nicotine dependence; Z71.41 Alcohol abuse counseling and surveillance of alcoholic
CPT/HCPCS: 36415; 80048; 80053; 82272; 83690; 83735; 84100; 85025; 96365; 96375; J1644; J2405; J3411; J3480; J2060; J3475; J7030

== ENCOUNTER 2017-11-27 17:46 | Emergency (ER) | payer MEDICAID ==
[~2017-11-27] VITALS: Ht 182.9 cm; Wt 80.0 kg
[2017-11-27] MEDS ORDERED: THIAMINE 100MG TABLET PO ONE (18:00)
[2017-11-27] MEDS ORDERED: THIAMINE 100MG TABLET ONE (18:03)
[2017-11-27 18:28] LABS: INTERNATIONAL NORMALIZED RATIO 0.97 (0.93-1.1)
[2017-11-27 18:31] LABS: ALANINE AMINOTRANSFERASE 64 U/L (12-78); ALBUMIN 3.1 g/dL (3.4-5.0); ANION GAP 7 mmol/L (5-15); CHLORIDE 104 mmol/L (98-107); CREATININE 0.99 mg/dL (0.7-1.3)
[2017-11-27 18:33] LABS: ALKALINE PHOSPHATASE 70 U/L (45-117); BILIRUBIN,TOTAL 0.3 mg/dL (0.2-1.0); TOTAL PROTEIN 7.1 g/dL (6.4-8.2)
[2017-11-27 18:40] LABS: MEAN CORPUSCULAR HEMOGLOBIN 34.5 pg (27.5-34.5); MEAN CORPUSCULAR HGB CONC 34.3 g/dL (33.2-36.2); MEAN CORPUSCULAR VOLUME 100.4 fL (81-97); MEAN PLATELET VOLUME 8.8 fL (7.4-10.4); PLATELET COUNT 100 x10^3/uL (130-400); RED BLOOD COUNT 3.93 x10^6/uL (4.38-5.82); RED CELL DISTRIBUTION WIDTH 14.6 % (9.4-14.8)
[2017-11-27 18:42] LABS: BASOPHILS # (AUTO) 0.01 x10^3/uL (0-0.1); BASOPHILS % (AUTO) 0 % (0-1); EOSINOPHILS # (AUTO) 0.06 x10^3/uL (0-0.4); EOSINOPHILS % (AUTO) 2 % (1-7); LYMPHOCYTES # (AUTO) 0.68 x10^3/uL (1-3.4); LYMPHOCYTES % (AUTO) 19 % (22-44); MD SCAN; MONOCYTES # (AUTO) 0.41 x10^3/uL (0.2-0.8); MONOCYTES % (AUTO) 12 % (2-9); NEUTROPHILS # (AUTO) 2.41 x10^3/uL (1.8-6.8); NEUTROPHILS % (AUTO) 68 % (42-75)
[2017-11-27 19:42] VITALS: BP 142/88
== END 2017-11-27 19:44 | disposition home or self-care (01) ==
LOC: ED 18:14
DX: F10.20 Alcohol dependence, uncomplicated (principal); F19.20 Other psychoactive substance dependence, uncomplicated
CPT/HCPCS: 36415; 80053; 82140; 85025; 85610; 99284

== ENCOUNTER 2018-02-02 21:36 | Inpatient (IN) | payer MEDICAID ==
[~2018-02-02] VITALS: Ht 182.9 cm; Wt 77.5 kg
[2018-02-02] MEDS ORDERED: VENL150C PO (22:34)
[2018-02-02] MEDS ORDERED: HYDR50CA PO (22:34)
[2018-02-02 22:52] LABS: BASOPHILS # (AUTO) 0.03 x10^3/uL (0-0.1); BASOPHILS % (AUTO) 1 % (0-1); EOSINOPHILS # (AUTO) 0.06 x10^3/uL (0-0.4); EOSINOPHILS % (AUTO) 1 % (1-7); LYMPHOCYTES # (AUTO) 0.48 x10^3/uL (1-3.4); LYMPHOCYTES % (AUTO) 11 % (22-44); MD NO; MEAN CORPUSCULAR HEMOGLOBIN 33.5 pg (27.5-34.5); MEAN CORPUSCULAR HGB CONC 33.6 g/dL (33.2-36.2); MEAN CORPUSCULAR VOLUME 99.8 fL (81-97); MEAN PLATELET VOLUME 6.7 fL (7.4-10.4); MONOCYTES # (AUTO) 0.35 x10^3/uL (0.2-0.8); MONOCYTES % (AUTO) 8 % (2-9); NEUTROPHILS % (AUTO) 78 % (42-75); PLATELET COUNT 203 x10^3/uL (130-400); RED CELL DISTRIBUTION WIDTH 16.5 % (9.4-14.8)
[2018-02-02 23:01] LABS: ACETAMINOPHEN < 2 mcg/mL (10-30); ALBUMIN 3.5 g/dL (3.4-5.0); ANION GAP 11 mmol/L (5-15); CALCIUM 7.8 mg/dL (8.5-10.1); CHLORIDE 103 mmol/L (98-107); CREATININE 0.87 mg/dL (0.7-1.3); SALICYLATE LEVEL 1.8 mg/dL (2.8-20.0)
[2018-02-03] MEDS ORDERED: THIAMINE 100MG TABLET ONE (00:39)
[2018-02-03] MEDS ORDERED: LORazepam 1MG TABLET ONE ×3 (00:39→09:39)
[2018-02-03] MEDS ORDERED: THIAMINE 100MG TABLET PO ONE (01:00)
[2018-02-03] MEDS ORDERED: LORazepam 1MG TABLET PO ONE (01:00)
[2018-02-03 01:07] LABS: AMPHETAMINE SCREEN, URINE Negative (Negative); BARBITURATE SCREEN, URINE Negative (Negative); BENZODIAZEPINE SCREEN, URINE Negative (Negative); CANNABINOID SCREEN, URINE Negative (Negative); COCAINE SCREEN, URINE Negative (Negative); METHADONE SCREEN, URINE Negative (Negative); OPIATE SCREEN, URINE Negative (Negative)
[2018-02-03] MEDS: LORazepam 1MG TABLET PO PRN ×4 (06:53→20:22)
[2018-02-03] MEDS ORDERED: SODIUM CHLORIDE 0.9% 1,000ML IVBOLUS ONE (10:30)
[2018-02-03] MEDS ORDERED: LORazepam 2 MG/ML, 1ML IVPush PRN (10:30)
[2018-02-03] MEDS ORDERED: LORazepam 2 MG/ML, 1ML ONE (10:44)
[2018-02-03] MEDS ORDERED: POLYETHYLENE GLYCOL 17 GM PACKET PO PRN (11:30)
[2018-02-03] MEDS ORDERED: LORazepam 2 MG/ML, 1ML IV PRN ×5 (11:30)
[2018-02-03] MEDS ORDERED: ONDANSETRON 2MG/ML, 2ML IVPush PRN (11:30)
[2018-02-03] MEDS ORDERED: LORazepam 1MG TABLET PO PRN ×3 (11:30)
[2018-02-03] MEDS ORDERED: LABETALOL 5MG/ML, 20ML IVPush PRN (11:30)
[2018-02-03] MEDS ORDERED: CHLORDIAZEPOXIDE 25 MG CAPSULE PO PRN ×2 (11:30→19:00)
[2018-02-03] MEDS ORDERED: ONDANSETRON ODT 4 MG PO PRN (11:30)
[2018-02-03] MEDS ORDERED: BACLOFEN 10 MG TABLET PO PRN (11:30)
[2018-02-03 11:59] VITALS: BP 119/72
[2018-02-03] MEDS ORDERED: cloniDINE 0.1MG PATCH TD SCH (12:00)
[2018-02-03] MEDS: GABAPENTIN 100 MG CAPSULE PO SCH ×3 (12:35→20:22)
[2018-02-03] MEDS: VALPROIC ACID 250 MG CAPSULE PO SCH ×3 (12:35→20:22)
[2018-02-03] MEDS: POTASSIUM CHLORIDE 20 MEQ, MAGNESIUM SULFATE 1 GM, MVI ADULT 10 ML, THIAMINE 200 MG, FO... IV SCH (13:50)
[2018-02-03] MEDS: LORazepam 0.5MG TABLET PO PRN (14:22)
[2018-02-03 16:21] VITALS: BP 117/86
[2018-02-03] MEDS: CHLORDIAZEPOXIDE 25 MG CAPSULE PO SCH (20:23)
[2018-02-03 20:43] VITALS: BP 125/71
[2018-02-04 02:19] VITALS: BP 122/82
[2018-02-04 05:35] LABS: BASOPHILS # (AUTO) 0.01 x10^3/uL (0-0.1); BASOPHILS % (AUTO) 0 % (0-1); EOSINOPHILS # (AUTO) 0.05 x10^3/uL (0-0.4); EOSINOPHILS % (AUTO) 1 % (1-7); LYMPHOCYTES # (AUTO) 0.41 x10^3/uL (1-3.4); LYMPHOCYTES % (AUTO) 11 % (22-44); MD NO; MEAN CORPUSCULAR HEMOGLOBIN 34.4 pg (27.5-34.5); MEAN CORPUSCULAR HGB CONC 33.9 g/dL (33.2-36.2); MEAN CORPUSCULAR VOLUME 101.5 fL (81-97); MEAN PLATELET VOLUME 7.6 fL (7.4-10.4); MONOCYTES # (AUTO) 0.47 x10^3/uL (0.2-0.8); MONOCYTES % (AUTO) 13 % (2-9); NEUTROPHILS # (AUTO) 2.77 x10^3/uL (1.8-6.8); NEUTROPHILS % (AUTO) 75 % (42-75); PLATELET COUNT 171 x10^3/uL (130-400); RED BLOOD COUNT 4.02 x10^6/uL (4.38-5.82); RED CELL DISTRIBUTION WIDTH 16.3 % (9.4-14.8)
[2018-02-04 05:58] LABS: CALCIUM 8.5 mg/dL (8.5-10.1); CHLORIDE 105 mmol/L (98-107)
[2018-02-04 06:13] LABS: ALANINE AMINOTRANSFERASE 46 U/L (12-78); ALKALINE PHOSPHATASE 54 U/L (45-117); ANION GAP 6 mmol/L (5-15); BILIRUBIN,TOTAL 0.5 mg/dL (0.2-1.0); CREATININE 0.88 mg/dL (0.7-1.3)
[2018-02-04 07:42] VITALS: BP 127/83
[2018-02-04] MEDS: LORazepam 1MG TABLET PO PRN ×3 (08:34→16:14)
[2018-02-04] MEDS: VENLAFAXINE 75 MG CAP ER PO SCH (08:34)
[2018-02-04] MEDS: VALPROIC ACID 250 MG CAPSULE PO SCH ×3 (08:34→21:49)
[2018-02-04] MEDS: CHLORDIAZEPOXIDE 25 MG CAPSULE PO SCH ×3 (08:34→21:48)
[2018-02-04] MEDS: GABAPENTIN 100 MG CAPSULE PO SCH ×3 (08:34→21:47)
[2018-02-04] MEDS: HYDROXYZINE PAMOATE 50MG CAP PO SCH (08:37)
[2018-02-04] MEDS: SENNA/DOCUSATE TABLET PO SCH (08:38)
[2018-02-04] MEDS: POTASSIUM CHLORIDE 20 MEQ, MAGNESIUM SULFATE 1 GM, MVI ADULT 10 ML, THIAMINE 200 MG, FO... IV SCH (12:29)
[2018-02-04 12:40] VITALS: BP 132/94
[2018-02-04 19:19] VITALS: BP 138/92
[2018-02-04] MEDS: TRAZODONE 100MG TABLET PO SCH (21:47)
[2018-02-04 23:56] VITALS: BP 116/78
[2018-02-05 06:34] VITALS: BP 128/85
[2018-02-05] MEDS: SENNA/DOCUSATE TABLET PO SCH (09:00)
[2018-02-05] MEDS: VENLAFAXINE 75 MG CAP ER PO SCH (09:12)
[2018-02-05] MEDS: GABAPENTIN 100 MG CAPSULE PO SCH ×3 (09:12→21:43)
[2018-02-05] MEDS: CHLORDIAZEPOXIDE 25 MG CAPSULE PO SCH ×3 (09:13→21:43)
[2018-02-05] MEDS: VALPROIC ACID 250 MG CAPSULE PO SCH ×3 (09:13→21:43)
[2018-02-05] MEDS: HYDROXYZINE PAMOATE 50MG CAP PO SCH (09:15)
[2018-02-05] MEDS: LORazepam 0.5MG TABLET PO PRN (09:26)
[2018-02-05 12:22] VITALS: BP 126/86
[2018-02-05] MEDS: POTASSIUM CHLORIDE 20 MEQ, MAGNESIUM SULFATE 1 GM, MVI ADULT 10 ML, THIAMINE 200 MG, FO... IV SCH (13:07)
[2018-02-05 20:19] VITALS: BP 127/92
[2018-02-05] MEDS: TRAZODONE 100MG TABLET PO SCH (21:43)
[2018-02-06 02:09] VITALS: BP 123/83
[2018-02-06 05:05] LABS: ANION GAP 8 mmol/L (5-15); CALCIUM 8.6 mg/dL (8.5-10.1); CHLORIDE 106 mmol/L (98-107); CREATININE 0.86 mg/dL (0.7-1.3)
[2018-02-06 05:12] LABS: BASOPHILS # (AUTO) 0.02 x10^3/uL (0-0.1); BASOPHILS % (AUTO) 0 % (0-1); EOSINOPHILS % (AUTO) 2 % (1-7); LYMPHOCYTES # (AUTO) 1.23 x10^3/uL (1-3.4); LYMPHOCYTES % (AUTO) 25 % (22-44); MD NO; MEAN CORPUSCULAR HEMOGLOBIN 34.4 pg (27.5-34.5); MEAN CORPUSCULAR HGB CONC 34.2 g/dL (33.2-36.2); MEAN CORPUSCULAR VOLUME 100.5 fL (81-97); MEAN PLATELET VOLUME 7.7 fL (7.4-10.4); MONOCYTES # (AUTO) 0.56 x10^3/uL (0.2-0.8); MONOCYTES % (AUTO) 11 % (2-9); NEUTROPHILS % (AUTO) 61 % (42-75); PLATELET COUNT 192 x10^3/uL (130-400); RED BLOOD COUNT 4.27 x10^6/uL (4.38-5.82); RED CELL DISTRIBUTION WIDTH 15.6 % (9.4-14.8)
[2018-02-06 07:41] LABS: THYROID STIMULATING HORMONE 3.96 mIU/L (0.358-3.740)
[2018-02-06 08:05] VITALS: BP 124/89
[2018-02-06] MEDS: VALPROIC ACID 250 MG CAPSULE PO SCH ×3 (09:59→21:32)
[2018-02-06] MEDS: FOLIC ACID 1 MG TABLET PO SCH (10:00)
[2018-02-06] MEDS: VENLAFAXINE 75 MG CAP ER PO SCH (10:00)
[2018-02-06] MEDS: CHLORDIAZEPOXIDE 25 MG CAPSULE PO SCH ×2 (10:01→21:32)
[2018-02-06] MEDS: GABAPENTIN 100 MG CAPSULE PO SCH ×3 (10:02→21:32)
[2018-02-06] MEDS: SENNA/DOCUSATE TABLET PO SCH (10:03)
[2018-02-06] MEDS: HYDROXYZINE PAMOATE 50MG CAP PO SCH (10:04)
[2018-02-06] MEDS: THIAMINE 100MG TABLET PO SCH (10:05)
[2018-02-06 15:39] VITALS: BP 118/81
[2018-02-06 18:35] VITALS: BP 128/69
[2018-02-06] MEDS: TRAZODONE 100MG TABLET PO SCH (21:32)
[2018-02-07 00:39] VITALS: BP 124/88
[2018-02-07 05:34] LABS: BASOPHILS # (AUTO) 0.02 x10^3/uL (0-0.1); BASOPHILS % (AUTO) 0 % (0-1); EOSINOPHILS # (AUTO) 0.06 x10^3/uL (0-0.4); EOSINOPHILS % (AUTO) 1 % (1-7); LYMPHOCYTES # (AUTO) 1.12 x10^3/uL (1-3.4); LYMPHOCYTES % (AUTO) 21 % (22-44); MD NO; MEAN CORPUSCULAR HEMOGLOBIN 34.4 pg (27.5-34.5); MEAN CORPUSCULAR HGB CONC 33.8 g/dL (33.2-36.2); MEAN CORPUSCULAR VOLUME 101.9 fL (81-97); MEAN PLATELET VOLUME 7.6 fL (7.4-10.4); MONOCYTES # (AUTO) 0.56 x10^3/uL (0.2-0.8); MONOCYTES % (AUTO) 10 % (2-9); NEUTROPHILS # (AUTO) 3.66 x10^3/uL (1.8-6.8); NEUTROPHILS % (AUTO) 68 % (42-75); PLATELET COUNT 218 x10^3/uL (130-400); RED BLOOD COUNT 4.35 x10^6/uL (4.38-5.82); RED CELL DISTRIBUTION WIDTH 15.3 % (9.4-14.8)
[2018-02-07 05:43] LABS: ALBUMIN 3.1 g/dL (3.4-5.0); ANION GAP 8 mmol/L (5-15); CALCIUM 9.1 mg/dL (8.5-10.1); CHLORIDE 106 mmol/L (98-107)
[2018-02-07 05:45] LABS: CREATININE 0.91 mg/dL (0.7-1.3)
[2018-02-07 07:10] VITALS: BP 111/79
[2018-02-07] MEDS: VENLAFAXINE 75 MG CAP ER PO SCH (10:25)
[2018-02-07] MEDS: HYDROXYZINE PAMOATE 50MG CAP PO SCH (10:25)
[2018-02-07] MEDS: SENNA/DOCUSATE TABLET PO SCH (10:25)
[2018-02-07] MEDS: GABAPENTIN 100 MG CAPSULE PO SCH ×3 (10:25→20:35)
[2018-02-07] MEDS: FOLIC ACID 1 MG TABLET PO SCH (10:26)
[2018-02-07] MEDS: CHLORDIAZEPOXIDE 25 MG CAPSULE PO SCH (10:26)
[2018-02-07] MEDS: THIAMINE 100MG TABLET PO SCH (10:26)
[2018-02-07] MEDS: VALPROIC ACID 250 MG CAPSULE PO SCH ×3 (10:26→20:35)
[2018-02-07 16:43] VITALS: BP 112/78
[2018-02-07 16:45] VITALS: BP 112/78
[2018-02-07] MEDS: TRAZODONE 100MG TABLET PO SCH (20:35)
[2018-02-07 20:54] VITALS: BP 121/82
[2018-02-08 02:12] VITALS: BP 114/79
[2018-02-08 06:55] VITALS: BP 106/72
[2018-02-08] MEDS: FOLIC ACID 1 MG TABLET PO SCH (08:49)
[2018-02-08] MEDS: HYDROXYZINE PAMOATE 50MG CAP PO SCH (08:50)
[2018-02-08] MEDS: THIAMINE 100MG TABLET PO SCH (08:50)
[2018-02-08] MEDS: VENLAFAXINE 75 MG CAP ER PO SCH (08:50)
[2018-02-08] MEDS: GABAPENTIN 100 MG CAPSULE PO SCH ×2 (08:50→15:42)
[2018-02-08] MEDS: VALPROIC ACID 250 MG CAPSULE PO SCH ×2 (08:50→15:42)
[2018-02-08] MEDS: SENNA/DOCUSATE TABLET PO SCH (08:54)
[2018-02-08] MEDS ORDERED: CHLORDIAZEPOXIDE 25 MG CAPSULE PO SCH (09:00)
[2018-02-08 13:15] VITALS: BP 114/78
[2018-02-08] MEDS ORDERED: FOLI-17 PO (14:14)
[2018-02-08] MEDS ORDERED: THIA100T67 PO (14:14)
== END 2018-02-08 18:11 | DRG 897 ==
LOC: ED 02-03 00:28 → EDIP 02-03 11:19 → 4WST 02-03 12:14
PROVIDERS: ADMIT Hospitalist; ATTEND Hospitalist
DX: F10.220 Alcohol dependence with intoxication, uncomplicated (principal); R45.851 Suicidal ideations; F33.2 Major depressive disorder, recurrent severe without psychotic features; F10.239 Alcohol dependence with withdrawal, unspecified; D75.89 Other specified diseases of blood and blood-forming organs; R56.9 Unspecified convulsions; F41.9 Anxiety disorder, unspecified; Z87.891 Personal history of nicotine dependence; Z59.0 Homelessness; Z83.3 Family history of diabetes mellitus; Z82.49 Family history of ischemic heart disease and other diseases of the circulatory system
CPT/HCPCS: 36415; 80048; 80053; 80307; 80329; 82040; 82607; 83735; 84100; 84439; 84443; 85025; 90656; 96374; 99285; G0378; J3411; J3475; J3480; Q0162; G0480; J2060; J7030

== ENCOUNTER 2018-02-08 12:20 | Inpatient (IN) | payer MEDICAID ==
[~2018-02-08] VITALS: Ht 182.9 cm; Wt 74.0 kg
[~2018-02-08 12:20] MED LIST changes: +HYDR50CA PO; +VENL150C PO
[2018-02-08] MEDS ORDERED: BISACODYL 10 MG SUPP PR PRN (13:00)
[2018-02-08] MEDS ORDERED: ACETAMINOPHEN 325 MG TABLET PO PRN (13:00)
[2018-02-08] MEDS ORDERED: THIA100T67 PO (14:14)
[2018-02-08] MEDS ORDERED: FOLI-17 PO (14:14)
[2018-02-08] MEDS ORDERED: PLEASE ENTER HEIGHT AND WEIGHT MC SCH (18:00)
[2018-02-08] MEDS ORDERED: LORazepam 0.5MG TABLET PO PRN (18:00)
[2018-02-08] MEDS ORDERED: ONDANSETRON 4 MG TABLET PO PRN (18:00)
[2018-02-08 18:09] VITALS: BP 108/77
[2018-02-08 18:16] VITALS: BP 108/77
[2018-02-08 20:10] VITALS: BP 104/74
[2018-02-08] MEDS: TRAZODONE 100MG TABLET PO SCH (20:31)
[2018-02-08] MEDS: VALPROIC ACID 250 MG CAPSULE PO SCH (20:31)
[2018-02-08] MEDS: GABAPENTIN 100 MG CAPSULE PO SCH (20:31)
[2018-02-09 04:55] LABS: ALANINE AMINOTRANSFERASE 60 U/L (12-78); ALBUMIN 3.1 g/dL (3.4-5.0); ANION GAP 5 mmol/L (5-15); CALCIUM 9.2 mg/dL (8.5-10.1); CHLORIDE 105 mmol/L (98-107); CREATININE 0.87 mg/dL (0.7-1.3)
[2018-02-09 05:00] LABS: BASOPHILS # (AUTO) 0.02 x10^3/uL (0-0.1); BASOPHILS % (AUTO) 1 % (0-1); EOSINOPHILS # (AUTO) 0.09 x10^3/uL (0-0.4); EOSINOPHILS % (AUTO) 2 % (1-7); LYMPHOCYTES # (AUTO) 1.37 x10^3/uL (1-3.4); LYMPHOCYTES % (AUTO) 31 % (22-44); MD NO; MEAN CORPUSCULAR HEMOGLOBIN 34.7 pg (27.5-34.5); MEAN CORPUSCULAR HGB CONC 34.1 g/dL (33.2-36.2); MEAN CORPUSCULAR VOLUME 101.9 fL (81-97); MEAN PLATELET VOLUME 7.8 fL (7.4-10.4); MONOCYTES # (AUTO) 0.66 x10^3/uL (0.2-0.8); MONOCYTES % (AUTO) 15 % (2-9); NEUTROPHILS # (AUTO) 2.34 x10^3/uL (1.8-6.8); NEUTROPHILS % (AUTO) 52 % (42-75); PLATELET COUNT 233 x10^3/uL (130-400); RED BLOOD COUNT 4.19 x10^6/uL (4.38-5.82); RED CELL DISTRIBUTION WIDTH 14.9 % (9.4-14.8)
[2018-02-09 05:22] LABS: ALKALINE PHOSPHATASE 51 U/L (45-117); BILIRUBIN,TOTAL 0.3 mg/dL (0.2-1.0); FREE T4 (FREE THYROXINE) 0.74 ng/dL (0.76-1.46); TOTAL PROTEIN 7.2 g/dL (6.4-8.2)
[2018-02-09 06:29] LABS: CHOLESTEROL, TOTAL 174 mg/dL (140-239); TRIGLYCERIDES 65 mg/dL (50-200); VLDL CHOLESTEROL 13 mg/dL (0-25)
[2018-02-09 06:32] LABS: CHOL/HDL RATIO 2.4; HDL CHOL % 42 % (26-37); HDL CHOLESTEROL (DIRECT) 73 mg/dL (40-60); LDL CHOLESTEROL,CALCULATED 88 mg/dL (54-169); LDL/HDL RATIO 1.2 (0.5-3.0)
[2018-02-09 07:30] VITALS: BP 110/78
[2018-02-09] MEDS: VALPROIC ACID 250 MG CAPSULE PO SCH ×3 (08:25→20:16)
[2018-02-09] MEDS: FOLIC ACID 1 MG TABLET PO SCH (08:25)
[2018-02-09] MEDS: GABAPENTIN 100 MG CAPSULE PO SCH ×3 (08:25→20:16)
[2018-02-09] MEDS: VENLAFAXINE 75MG TABLET PO SCH (08:25)
[2018-02-09] MEDS: DOCUSATE 100 MG CAPSULE PO PRN (09:02)
[2018-02-09] MEDS ORDERED: THIAMINE 100MG TABLET PO SCH (12:30)
[2018-02-09] MEDS: THIAMINE 100MG TABLET PO SCH (12:35)
[2018-02-09] MEDS: ACAMPROSATE 333 MG TABLET.DR PO SCH ×2 (16:38→20:16)
[2018-02-09 19:44] VITALS: BP 115/83
[2018-02-09] MEDS: TRAZODONE 100MG TABLET PO SCH (20:16)
[2018-02-10 07:51] VITALS: BP 112/71
[2018-02-10] MEDS: FOLIC ACID 1 MG TABLET PO SCH (08:13)
[2018-02-10] MEDS: THIAMINE 100MG TABLET PO SCH (08:13)
[2018-02-10] MEDS: VENLAFAXINE 75MG TABLET PO SCH (08:13)
[2018-02-10] MEDS: GABAPENTIN 100 MG CAPSULE PO SCH ×3 (08:13→20:59)
[2018-02-10] MEDS: ACAMPROSATE 333 MG TABLET.DR PO SCH ×3 (08:13→20:59)
[2018-02-10] MEDS: VALPROIC ACID 250 MG CAPSULE PO SCH ×3 (08:13→20:59)
[2018-02-10] MEDS: POLYETHYLENE GLYCOL 17 GM PACKET PO PRN ×2 (08:15→21:00)
[2018-02-10 19:47] VITALS: BP 116/80
[2018-02-10] MEDS: TRAZODONE 100MG TABLET PO SCH (20:59)
[2018-02-10] MEDS: DOCUSATE 100 MG CAPSULE PO PRN (21:00)
[2018-02-11 07:54] VITALS: BP 108/74
[2018-02-11] MEDS: ACAMPROSATE 333 MG TABLET.DR PO SCH ×3 (08:25→20:40)
[2018-02-11] MEDS: FOLIC ACID 1 MG TABLET PO SCH (08:25)
[2018-02-11] MEDS: VALPROIC ACID 250 MG CAPSULE PO SCH ×3 (08:26→20:42)
[2018-02-11] MEDS: VENLAFAXINE 75MG TABLET PO SCH (08:26)
[2018-02-11] MEDS: THIAMINE 100MG TABLET PO SCH (08:26)
[2018-02-11] MEDS: GABAPENTIN 100 MG CAPSULE PO SCH ×3 (08:26→20:48)
[2018-02-11 19:24] VITALS: BP 103/71
[2018-02-11] MEDS: DOCUSATE 100 MG CAPSULE PO PRN (20:33)
[2018-02-11] MEDS: POLYETHYLENE GLYCOL 17 GM PACKET PO PRN (20:34)
[2018-02-11] MEDS: TRAZODONE 100MG TABLET PO SCH (20:47)
[2018-02-12 07:20] VITALS: BP 112/78
[2018-02-12] MEDS: THIAMINE 100MG TABLET PO SCH (09:01)
[2018-02-12] MEDS: VALPROIC ACID 250 MG CAPSULE PO SCH ×3 (09:02→20:56)
[2018-02-12] MEDS: VENLAFAXINE 75MG TABLET PO SCH (09:02)
[2018-02-12] MEDS: FOLIC ACID 1 MG TABLET PO SCH (09:03)
[2018-02-12] MEDS: GABAPENTIN 100 MG CAPSULE PO SCH ×3 (09:03→20:56)
[2018-02-12] MEDS: ACAMPROSATE 333 MG TABLET.DR PO SCH ×3 (09:03→20:56)
[2018-02-12 19:33] VITALS: BP 114/81
[2018-02-12] MEDS: TRAZODONE 100MG TABLET PO SCH (20:56)
[2018-02-13] MEDS: GABAPENTIN 100 MG CAPSULE PO SCH ×3 (07:56→21:42)
[2018-02-13] MEDS: VALPROIC ACID 250 MG CAPSULE PO SCH ×3 (07:56→21:42)
[2018-02-13] MEDS: ACAMPROSATE 333 MG TABLET.DR PO SCH ×3 (07:56→21:42)
[2018-02-13] MEDS: THIAMINE 100MG TABLET PO SCH (07:56)
[2018-02-13] MEDS: VENLAFAXINE 75MG TABLET PO SCH (07:56)
[2018-02-13] MEDS: FOLIC ACID 1 MG TABLET PO SCH (07:56)
[2018-02-13 08:07] VITALS: BP 111/77
[2018-02-13 19:39] VITALS: BP 124/85
[2018-02-13] MEDS: TRAZODONE 100MG TABLET PO SCH (21:42)
[2018-02-14 07:30] VITALS: BP 102/69
[2018-02-14] MEDS: VENLAFAXINE 75MG TABLET PO SCH (08:13)
[2018-02-14] MEDS: ACAMPROSATE 333 MG TABLET.DR PO SCH ×3 (08:13→20:32)
[2018-02-14] MEDS: FOLIC ACID 1 MG TABLET PO SCH (08:13)
[2018-02-14] MEDS: THIAMINE 100MG TABLET PO SCH (08:13)
[2018-02-14] MEDS: GABAPENTIN 100 MG CAPSULE PO SCH ×3 (08:13→20:32)
[2018-02-14] MEDS: VALPROIC ACID 250 MG CAPSULE PO SCH ×3 (08:13→20:31)
[2018-02-14 19:40] VITALS: BP 132/91
[2018-02-14] MEDS: TRAZODONE 100MG TABLET PO SCH (20:31)
[2018-02-15 07:00] VITALS: BP 109/78
[2018-02-15] MEDS: GABAPENTIN 100 MG CAPSULE PO SCH ×3 (08:11→20:10)
[2018-02-15] MEDS: THIAMINE 100MG TABLET PO SCH (08:11)
[2018-02-15] MEDS: FOLIC ACID 1 MG TABLET PO SCH (08:12)
[2018-02-15] MEDS: VALPROIC ACID 250 MG CAPSULE PO SCH ×3 (08:12→20:10)
[2018-02-15] MEDS: VENLAFAXINE 75MG TABLET PO SCH (08:12)
[2018-02-15] MEDS: ACAMPROSATE 333 MG TABLET.DR PO SCH ×3 (08:12→20:09)
[2018-02-15 19:56] VITALS: BP 113/77
[2018-02-15] MEDS: TRAZODONE 100MG TABLET PO SCH (20:10)
[2018-02-16 07:42] VITALS: BP 113/77
[2018-02-16] MEDS: THIAMINE 100MG TABLET PO SCH (08:12)
[2018-02-16] MEDS: FOLIC ACID 1 MG TABLET PO SCH (08:12)
[2018-02-16] MEDS: ACAMPROSATE 333 MG TABLET.DR PO SCH ×3 (08:12→20:23)
[2018-02-16] MEDS: GABAPENTIN 100 MG CAPSULE PO SCH ×3 (08:12→20:23)
[2018-02-16] MEDS: VENLAFAXINE 75MG TABLET PO SCH (08:12)
[2018-02-16] MEDS: VALPROIC ACID 250 MG CAPSULE PO SCH ×3 (08:12→20:24)
[2018-02-16 19:21] VITALS: BP 128/85
[2018-02-16] MEDS: TRAZODONE 100MG TABLET PO SCH (20:24)
[2018-02-17 07:20] VITALS: BP 112/77
[2018-02-17] MEDS: ACAMPROSATE 333 MG TABLET.DR PO SCH (08:45)
[2018-02-17] MEDS: VALPROIC ACID 250 MG CAPSULE PO SCH (08:45)
[2018-02-17] MEDS: FOLIC ACID 1 MG TABLET PO SCH (08:45)
[2018-02-17] MEDS: VENLAFAXINE 75MG TABLET PO SCH (08:45)
[2018-02-17] MEDS: THIAMINE 100MG TABLET PO SCH (08:46)
[2018-02-17] MEDS: GABAPENTIN 100 MG CAPSULE PO SCH (08:46)
== END 2018-02-17 10:00 | disposition home or self-care (01) | DRG 885 ==
LOC: 3E 17:22
PROVIDERS: ADMIT Counselor Mental Health; ATTEND Counselor Mental Health
DX: F33.1 Major depressive disorder, recurrent, moderate (principal); F10.239 Alcohol dependence with withdrawal, unspecified; R45.851 Suicidal ideations; F43.10 Post-traumatic stress disorder, unspecified; F10.229 Alcohol dependence with intoxication, unspecified; F17.210 Nicotine dependence, cigarettes, uncomplicated; D75.89 Other specified diseases of blood and blood-forming organs; G47.00 Insomnia, unspecified; Z79.899 Other long term (current) drug therapy; Z82.49 Family history of ischemic heart disease and other diseases of the circulatory system; Z83.3 Family history of diabetes mellitus
CPT/HCPCS: 36415; 80053; 80061; 82140; 82607; 82746; 84439; 84443; 85025; 86592; 92523-GN

== ENCOUNTER 2018-02-24 23:29 | Emergency (ER) | payer MEDICAID ==
[~2018-02-24] VITALS: Ht 182.9 cm; Wt 76.4 kg
[~2018-02-24 23:29] MED LIST changes: +THIA100T67 PO
[2018-02-25 01:25] VITALS: BP 121/75
== END 2018-02-25 01:27 | disposition home or self-care (01) ==
LOC: ED 23:59
DX: M79.662 Pain in left lower leg (principal); G40.909 Epilepsy, unspecified, not intractable, without status epilepticus
CPT/HCPCS: 99284

== ENCOUNTER 2018-03-02 01:54 | Inpatient (IN) | payer MEDICAID ==
[~2018-03-02] VITALS: Ht 182.9 cm; Wt 78.5 kg
[2018-03-02 02:43] LABS: BASOPHILS # (AUTO) 0.02 x10^3/uL (0-0.1); BASOPHILS % (AUTO) 1 % (0-1); EOSINOPHILS # (AUTO) 0.04 x10^3/uL (0-0.4); EOSINOPHILS % (AUTO) 1 % (1-7); LYMPHOCYTES # (AUTO) 1.13 x10^3/uL (1-3.4); LYMPHOCYTES % (AUTO) 35 % (22-44); MD NO; MEAN CORPUSCULAR HEMOGLOBIN 34.2 pg (27.5-34.5); MEAN CORPUSCULAR HGB CONC 34.3 g/dL (33.2-36.2); MEAN CORPUSCULAR VOLUME 99.7 fL (81-97); MEAN PLATELET VOLUME 7.4 fL (7.4-10.4); MONOCYTES # (AUTO) 0.21 x10^3/uL (0.2-0.8); MONOCYTES % (AUTO) 7 % (2-9); NEUTROPHILS # (AUTO) 1.83 x10^3/uL (1.8-6.8); NEUTROPHILS % (AUTO) 57 % (42-75); PLATELET COUNT 168 x10^3/uL (130-400); RED BLOOD COUNT 4.25 x10^6/uL (4.38-5.82); RED CELL DISTRIBUTION WIDTH 14.6 % (9.4-14.8)
[2018-03-02 02:56] LABS: ALANINE AMINOTRANSFERASE 63 U/L (12-78); ALBUMIN 3.6 g/dL (3.4-5.0); ANION GAP 13 mmol/L (5-15); CALCIUM 7.8 mg/dL (8.5-10.1); CHLORIDE 106 mmol/L (98-107); CREATININE 0.82 mg/dL (0.7-1.3)
[2018-03-02 03:08] LABS: ALKALINE PHOSPHATASE 72 U/L (45-117); BILIRUBIN,TOTAL 0.3 mg/dL (0.2-1.0); SALICYLATE LEVEL 1.8 mg/dL (2.8-20.0); TOTAL PROTEIN 7.5 g/dL (6.4-8.2)
[2018-03-02 03:12] LABS: ACETAMINOPHEN < 2 mcg/mL (10-30)
[2018-03-02 08:15] LABS: AMPHETAMINE SCREEN, URINE Negative (Negative); BARBITURATE SCREEN, URINE Negative (Negative); BENZODIAZEPINE SCREEN, URINE Negative (Negative); CANNABINOID SCREEN, URINE Negative (Negative); COCAINE SCREEN, URINE Negative (Negative); METHADONE SCREEN, URINE Negative (Negative); OPIATE SCREEN, URINE Negative (Negative)
[2018-03-02] MEDS ORDERED: LORazepam 1MG TABLET ONE ×2 (11:25→14:20)
[2018-03-02] MEDS ORDERED: LORazepam 1MG TABLET PO ONE ×2 (11:30→14:00)
[2018-03-02] MEDS ORDERED: THIAMINE 100MG TABLET PO ONE (14:00)
[2018-03-02] MEDS ORDERED: THIAMINE 100MG TABLET ONE (14:20)
[2018-03-02] MEDS ORDERED: SODIUM CHLORIDE 0.9% 1,000 ML IV ONE (16:03)
[2018-03-02] MEDS ORDERED: LORazepam 2 MG/ML, 1ML ONE (16:11)
[2018-03-02] MEDS: LORazepam 2 MG/ML, 1ML IVPush PRN ×2 (16:15→18:36)
[2018-03-02] MEDS ORDERED: LORazepam 2 MG/ML, 1ML IV PRN ×3 (16:30)
[2018-03-02] MEDS ORDERED: SODIUM CHLORIDE FLUSH 10ML SYR IVF PRN (16:30)
[2018-03-02] MEDS ORDERED: LORazepam 0.5MG TABLET PO PRN (16:30)
[2018-03-02] MEDS ORDERED: LORazepam 1MG TABLET PO PRN ×2 (16:30)
[2018-03-02] MEDS ORDERED: LABETALOL 5MG/ML, 20ML IVPush PRN (16:30)
[2018-03-02] MEDS ORDERED: ONDANSETRON 2MG/ML, 2ML IVPush PRN (16:30)
[2018-03-02] MEDS ORDERED: POLYETHYLENE GLYCOL 17 GM PACKET PO PRN (16:30)
[2018-03-02] MEDS ORDERED: SODIUM CHLORIDE FLUSH 10ML SYR IVF ONE (16:30)
[2018-03-02] MEDS ORDERED: ONDANSETRON ODT 4 MG PO PRN (16:30)
[2018-03-02] MEDS ORDERED: SODIUM CHLORIDE 0.9% 1,000ML IVBOLUS ONE (16:30)
[2018-03-02 16:50] LABS: FREE T4 (FREE THYROXINE) 0.77 ng/dL (0.76-1.46)
[2018-03-02] MEDS ORDERED: CHLORDIAZEPOXIDE 25 MG CAPSULE PO PRN (17:00)
[2018-03-02 17:40] VITALS: BP 112/67
[2018-03-02] MEDS ORDERED: GABA-826 PO (18:00)
[2018-03-02 18:03] VITALS: BP 112/67
[2018-03-02] MEDS: LORazepam 1MG TABLET PO PRN ×2 (18:25→19:57)
[2018-03-02] MEDS: ENOXAPARIN 40 MG/0.4 ML SQ SCH (18:25)
[2018-03-02] MEDS: FAMOTIDINE 20 MG/2 ML IVPush SCH (19:57)
[2018-03-02 20:00] VITALS: BP 102/60
[2018-03-02 21:45] VITALS: BP 99/56
[2018-03-02] MEDS: POTASSIUM CHLORIDE 20 MEQ, MAGNESIUM SULFATE 1 GM, FOLIC ACID 1 MG, THIAMINE 200 MG, MV... IV SCH (23:19)
[2018-03-03 01:36] VITALS: BP 107/68
[2018-03-03 05:51] VITALS: BP 101/66
[2018-03-03] MEDS: LORazepam 1MG TABLET PO PRN ×3 (05:59→18:22)
[2018-03-03 06:16] LABS: ALBUMIN 2.6 g/dL (3.4-5.0); ANION GAP 8 mmol/L (5-15); CALCIUM 7.6 mg/dL (8.5-10.1); CHLORIDE 105 mmol/L (98-107)
[2018-03-03 06:27] VITALS: BP 111/75
[2018-03-03 06:29] LABS: ALANINE AMINOTRANSFERASE 45 U/L (12-78); ALKALINE PHOSPHATASE 50 U/L (45-117); BILIRUBIN,TOTAL 0.8 mg/dL (0.2-1.0); CREATININE 0.87 mg/dL (0.7-1.3); TOTAL PROTEIN 5.6 g/dL (6.4-8.2)
[2018-03-03 07:31] LABS: MEAN CORPUSCULAR HGB CONC 35.1 g/dL (33.2-36.2); MEAN CORPUSCULAR VOLUME 99.6 fL (81-97); RED BLOOD COUNT 3.49 x10^6/uL (4.38-5.82); RED CELL DISTRIBUTION WIDTH 14.9 % (9.4-14.8)
[2018-03-03 07:34] LABS: BASOPHILS % (AUTO) 0 % (0-1); EOSINOPHILS # (AUTO) 0.03 x10^3/uL (0-0.4); EOSINOPHILS % (AUTO) 1 % (1-7); LYMPHOCYTES # (AUTO) 0.59 x10^3/uL (1-3.4); LYMPHOCYTES % (AUTO) 18 % (22-44); MD SCAN; MONOCYTES # (AUTO) 0.22 x10^3/uL (0.2-0.8); MONOCYTES % (AUTO) 7 % (2-9); NEUTROPHILS # (AUTO) 2.34 x10^3/uL (1.8-6.8); NEUTROPHILS % (AUTO) 74 % (42-75); PLATELET COUNT 97 x10^3/uL (130-400)
[2018-03-03] MEDS: FAMOTIDINE 20 MG/2 ML IVPush SCH ×2 (09:43→21:30)
[2018-03-03] MEDS: SENNA/DOCUSATE TABLET PO SCH (09:43)
[2018-03-03] MEDS: GABAPENTIN 300 MG CAPSULE PO PRN ×2 (12:00→21:04)
[2018-03-03 12:31] VITALS: BP 118/70
[2018-03-03] MEDS: CHLORDIAZEPOXIDE 25 MG CAPSULE PO SCH ×2 (16:24→21:30)
[2018-03-03] MEDS: ENOXAPARIN 40 MG/0.4 ML SQ SCH (18:21)
[2018-03-03 20:09] VITALS: BP 143/78
[2018-03-03] MEDS: POTASSIUM CHLORIDE 20 MEQ, MAGNESIUM SULFATE 1 GM, FOLIC ACID 1 MG, THIAMINE 200 MG, MV... IV SCH (23:34)
[2018-03-04 02:43] VITALS: BP 145/87
[2018-03-04 07:23] VITALS: BP 116/75
[2018-03-04 08:45] LABS: MEAN CORPUSCULAR HEMOGLOBIN 33.5 pg (27.5-34.5); MEAN CORPUSCULAR HGB CONC 33.7 g/dL (33.2-36.2); MEAN CORPUSCULAR VOLUME 99.6 fL (81-97); RED BLOOD COUNT 3.83 x10^6/uL (4.38-5.82); RED CELL DISTRIBUTION WIDTH 14.2 % (9.4-14.8)
[2018-03-04 08:46] LABS: ALANINE AMINOTRANSFERASE 48 U/L (12-78); ANION GAP 8 mmol/L (5-15); CALCIUM 8.5 mg/dL (8.5-10.1); CHLORIDE 106 mmol/L (98-107); CREATININE 0.86 mg/dL (0.7-1.3)
[2018-03-04 08:48] LABS: ALKALINE PHOSPHATASE 58 U/L (45-117); BILIRUBIN,TOTAL 0.6 mg/dL (0.2-1.0); TOTAL PROTEIN 6.7 g/dL (6.4-8.2)
[2018-03-04] MEDS: CHLORDIAZEPOXIDE 25 MG CAPSULE PO SCH ×3 (08:48→21:24)
[2018-03-04] MEDS: SENNA/DOCUSATE TABLET PO SCH (08:48)
[2018-03-04] MEDS: FAMOTIDINE 20 MG/2 ML IVPush SCH ×2 (08:48→21:24)
[2018-03-04] MEDS: LORazepam 2 MG/ML, 1ML IV PRN ×5 (09:09→17:58)
[2018-03-04 09:12] LABS: BASOPHILS # (AUTO) 0.02 x10^3/uL (0-0.1); BASOPHILS % (AUTO) 1 % (0-1); EOSINOPHILS # (AUTO) 0.18 x10^3/uL (0-0.4); EOSINOPHILS % (AUTO) 6 % (1-7); LYMPHOCYTES # (AUTO) 0.62 x10^3/uL (1-3.4); LYMPHOCYTES % (AUTO) 20 % (22-44); MD SCAN; MEAN PLATELET VOLUME 8.2 fL (7.4-10.4); MONOCYTES # (AUTO) 0.26 x10^3/uL (0.2-0.8); MONOCYTES % (AUTO) 8 % (2-9); NEUTROPHILS % (AUTO) 66 % (42-75); PLATELET COUNT 88 x10^3/uL (130-400)
[2018-03-04 13:10] VITALS: BP 121/70
[2018-03-04] MEDS: ENOXAPARIN 40 MG/0.4 ML SQ SCH (17:58)
[2018-03-04 20:55] VITALS: BP 114/80
[2018-03-05 02:11] VITALS: BP 120/82
[2018-03-05] MEDS: LORazepam 2 MG/ML, 1ML IV PRN (06:14)
[2018-03-05 07:50] LABS: MEAN CORPUSCULAR HEMOGLOBIN 34.6 pg (27.5-34.5); MEAN CORPUSCULAR HGB CONC 34.6 g/dL (33.2-36.2); MEAN CORPUSCULAR VOLUME 100.2 fL (81-97); MEAN PLATELET VOLUME 8.6 fL (7.4-10.4); PLATELET COUNT 97 x10^3/uL (130-400); RED BLOOD COUNT 4.13 x10^6/uL (4.38-5.82); RED CELL DISTRIBUTION WIDTH 14.4 % (9.4-14.8)
[2018-03-05 08:00] LABS: ALBUMIN 3.1 g/dL (3.4-5.0); ANION GAP 8 mmol/L (5-15); CALCIUM 9.2 mg/dL (8.5-10.1); CHLORIDE 105 mmol/L (98-107); CREATININE 0.89 mg/dL (0.7-1.3)
[2018-03-05 08:31] VITALS: BP 130/88
[2018-03-05 08:43] LABS: BASOPHILS # (AUTO) 0.02 x10^3/uL (0-0.1); BASOPHILS % (AUTO) 1 % (0-1); EOSINOPHILS # (AUTO) 0.24 x10^3/uL (0-0.4); EOSINOPHILS % (AUTO) 6 % (1-7); LYMPHOCYTES # (AUTO) 0.87 x10^3/uL (1-3.4); LYMPHOCYTES % (AUTO) 20 % (22-44); MD SCAN; MONOCYTES # (AUTO) 0.34 x10^3/uL (0.2-0.8); MONOCYTES % (AUTO) 8 % (2-9); NEUTROPHILS # (AUTO) 2.85 x10^3/uL (1.8-6.8); NEUTROPHILS % (AUTO) 66 % (42-75)
[2018-03-05] MEDS: CHLORDIAZEPOXIDE 25 MG CAPSULE PO SCH ×2 (08:50→21:42)
[2018-03-05] MEDS: SENNA/DOCUSATE TABLET PO SCH (08:50)
[2018-03-05] MEDS ORDERED: FAMOTIDINE 20 MG TABLET ONE (08:54)
[2018-03-05] MEDS: FAMOTIDINE 20 MG/2 ML IVPush SCH ×2 (08:55→21:42)
[2018-03-05 15:27] VITALS: BP 113/74
[2018-03-05] MEDS: ENOXAPARIN 40 MG/0.4 ML SQ SCH (18:42)
[2018-03-05 20:29] VITALS: BP 117/85
[2018-03-06 02:45] VITALS: BP 120/76
[2018-03-06 05:34] LABS: ALBUMIN 3.1 g/dL (3.4-5.0); ANION GAP 8 mmol/L (5-15); CALCIUM 8.6 mg/dL (8.5-10.1); CHLORIDE 105 mmol/L (98-107); CREATININE 1.02 mg/dL (0.7-1.3)
[2018-03-06 05:36] LABS: BASOPHILS # (AUTO) 0.02 x10^3/uL (0-0.1); BASOPHILS % (AUTO) 1 % (0-1); EOSINOPHILS # (AUTO) 0.25 x10^3/uL (0-0.4); EOSINOPHILS % (AUTO) 5 % (1-7); LYMPHOCYTES % (AUTO) 28 % (22-44); MD NO; MEAN CORPUSCULAR HEMOGLOBIN 34.4 pg (27.5-34.5); MEAN CORPUSCULAR HGB CONC 34.4 g/dL (33.2-36.2); MEAN PLATELET VOLUME 8.5 fL (7.4-10.4); MONOCYTES # (AUTO) 0.49 x10^3/uL (0.2-0.8); MONOCYTES % (AUTO) 10 % (2-9); NEUTROPHILS # (AUTO) 2.91 x10^3/uL (1.8-6.8); NEUTROPHILS % (AUTO) 57 % (42-75); PLATELET COUNT 117 x10^3/uL (130-400); RED CELL DISTRIBUTION WIDTH 14.6 % (9.4-14.8)
[2018-03-06 07:42] VITALS: BP 113/81
[2018-03-06] MEDS: FAMOTIDINE 20 MG/2 ML IVPush SCH (08:54)
[2018-03-06] MEDS: CHLORDIAZEPOXIDE 25 MG CAPSULE PO SCH ×2 (08:54→21:04)
[2018-03-06] MEDS: SENNA/DOCUSATE TABLET PO SCH (08:55)
[2018-03-06 13:40] VITALS: BP 115/76
[2018-03-06] MEDS: ENOXAPARIN 40 MG/0.4 ML SQ SCH (18:15)
[2018-03-06 20:27] VITALS: BP 110/74
[2018-03-06] MEDS: FAMOTIDINE 20 MG TABLET PO SCH (21:04)
[2018-03-06 21:25] VITALS: BP 91/58
[2018-03-07 03:16] VITALS: BP 109/72
[2018-03-07 04:43] LABS: BASOPHILS # (AUTO) 0.01 x10^3/uL (0-0.1); BASOPHILS % (AUTO) 0 % (0-1); EOSINOPHILS % (AUTO) 5 % (1-7); LYMPHOCYTES # (AUTO) 1.35 x10^3/uL (1-3.4); LYMPHOCYTES % (AUTO) 31 % (22-44); MD NO; MEAN CORPUSCULAR HEMOGLOBIN 34.4 pg (27.5-34.5); MEAN CORPUSCULAR VOLUME 101.2 fL (81-97); MEAN PLATELET VOLUME 8.5 fL (7.4-10.4); MONOCYTES # (AUTO) 0.66 x10^3/uL (0.2-0.8); MONOCYTES % (AUTO) 15 % (2-9); NEUTROPHILS # (AUTO) 2.14 x10^3/uL (1.8-6.8); NEUTROPHILS % (AUTO) 49 % (42-75); PLATELET COUNT 120 x10^3/uL (130-400); RED BLOOD COUNT 4.23 x10^6/uL (4.38-5.82); RED CELL DISTRIBUTION WIDTH 14.5 % (9.4-14.8)
[2018-03-07 04:50] LABS: ALBUMIN 3.1 g/dL (3.4-5.0); ANION GAP 7 mmol/L (5-15); CALCIUM 8.5 mg/dL (8.5-10.1); CHLORIDE 105 mmol/L (98-107)
[2018-03-07 04:52] LABS: CREATININE 1.22 mg/dL (0.7-1.3)
[2018-03-07 07:39] VITALS: BP 122/85
[2018-03-07] MEDS: CHLORDIAZEPOXIDE 25 MG CAPSULE PO SCH (08:51)
[2018-03-07] MEDS: SENNA/DOCUSATE TABLET PO SCH (08:51)
[2018-03-07] MEDS: FAMOTIDINE 20 MG TABLET PO SCH ×2 (08:51→21:45)
[2018-03-07 13:34] VITALS: BP 107/72
[2018-03-07] MEDS: ENOXAPARIN 40 MG/0.4 ML SQ SCH (17:23)
[2018-03-07 21:18] VITALS: BP 112/69
[2018-03-08 01:50] VITALS: BP 111/73
[2018-03-08 07:34] VITALS: BP 112/76
[2018-03-08] MEDS ORDERED: CHLORDIAZEPOXIDE 25 MG CAPSULE PO SCH (09:00)
[2018-03-08] MEDS: SENNA/DOCUSATE TABLET PO SCH (09:19)
[2018-03-08] MEDS: FAMOTIDINE 20 MG TABLET PO SCH (09:20)
[2018-03-08] MEDS ORDERED: LORA-446 PO (10:58)
[2018-03-08 12:35] VITALS: BP 109/76
[2018-03-08] MEDS ORDERED: TRAZODONE 100MG TABLET PO SCH (21:00)
== END 2018-03-08 13:42 | DRG 896 ==
LOC: ED 03:44 → EDIP 16:16 → 4EST 17:32
PROVIDERS: ADMIT Hospitalist; ATTEND Hospitalist
DX: F10.239 Alcohol dependence with withdrawal, unspecified (principal); E43 Unspecified severe protein-calorie malnutrition; R45.851 Suicidal ideations; R25.1 Tremor, unspecified; R74.0 Nonspecific elevation of levels of transaminase and lactic acid dehydrogenase [LDH]; G40.909 Epilepsy, unspecified, not intractable, without status epilepticus; F10.220 Alcohol dependence with intoxication, uncomplicated; Y90.8 Blood alcohol level of 240 mg/100 ml or more; F43.10 Post-traumatic stress disorder, unspecified; F32.9 Major depressive disorder, single episode, unspecified; D75.89 Other specified diseases of blood and blood-forming organs; D69.6 Thrombocytopenia, unspecified; Z83.3 Family history of diabetes mellitus; Z87.891 Personal history of nicotine dependence; Z82.49 Family history of ischemic heart disease and other diseases of the circulatory system; Z79.899 Other long term (current) drug therapy; Z68.23 Body mass index [BMI] 23.0-23.9, adult
CPT/HCPCS: 36415; 99285; J3490; J7121; 71045; 80048; 80053; 80307; 80329; 82040; 83735; 84100; 84439; 84443; 85025; G0378; J1650; J3411; J3475; J3480; G0480; J2060; J7030

== ENCOUNTER 2018-03-08 11:15 | Inpatient (IN) | payer MEDICAID ==
[~2018-03-08] VITALS: Ht 182.9 cm; Wt 76.9 kg
[~2018-03-08 11:15] MED LIST changes: +GABA-826 PO
[2018-03-08] MEDS ORDERED: DOCUSATE 100 MG CAPSULE PO PRN (11:30)
[2018-03-08] MEDS ORDERED: BISACODYL 10 MG SUPP PR PRN (11:30)
[2018-03-08] MEDS ORDERED: ACETAMINOPHEN 325 MG TABLET PO PRN (11:30)
[2018-03-08] MEDS ORDERED: POLYETHYLENE GLYCOL 17 GM PACKET PO PRN (11:30)
[2018-03-08] MEDS ORDERED: PLEASE ENTER HEIGHT AND WEIGHT MC SCH (12:00)
[2018-03-08 13:57] VITALS: BP 124/83
[2018-03-08 20:12] VITALS: BP 115/73
[2018-03-08] MEDS: TRAZODONE 100MG TABLET PO SCH (21:30)
[2018-03-09 06:32] LABS: CHOL/HDL RATIO 2.3; FOLATE LEVEL 16.7 ng/mL (3.1-17.5); FREE T4 (FREE THYROXINE) 0.75 ng/dL (0.76-1.46); LDL/HDL RATIO 1.2 (0.5-3.0); THYROID STIMULATING HORMONE 3.81 mIU/L (0.358-3.740)
[2018-03-09 07:54] VITALS: BP 110/76
[2018-03-09] MEDS ORDERED: ACAMPROSATE 333 MG TABLET.DR PO SCH (16:00)
[2018-03-09] MEDS: ACAMPROSATE 333 MG TABLET.DR PO SCH ×2 (16:09→20:36)
[2018-03-09] MEDS: THIAMINE 100MG TABLET PO SCH (16:10)
[2018-03-09 19:33] VITALS: BP_SYST 103; BP_SYST 105; BP_DIAS 69; BP_DIAS 71
[2018-03-09] MEDS: TRAZODONE 100MG TABLET PO SCH (20:35)
[2018-03-10 07:48] VITALS: BP 114/73
[2018-03-10] MEDS: THIAMINE 100MG TABLET PO SCH (09:26)
[2018-03-10] MEDS: VENLAFAXINE XR 37.5MG CAP.ER.24H PO SCH (09:26)
[2018-03-10] MEDS: ACAMPROSATE 333 MG TABLET.DR PO SCH ×3 (09:27→20:19)
[2018-03-10 20:06] VITALS: BP 114/77
[2018-03-10] MEDS: TRAZODONE 100MG TABLET PO SCH (20:18)
[2018-03-11 08:00] VITALS: BP 108/73
[2018-03-11] MEDS: THIAMINE 100MG TABLET PO SCH (08:22)
[2018-03-11] MEDS: VENLAFAXINE XR 37.5MG CAP.ER.24H PO SCH (08:22)
[2018-03-11] MEDS: ACAMPROSATE 333 MG TABLET.DR PO SCH ×3 (08:22→20:18)
[2018-03-11 19:34] VITALS: BP 128/87
[2018-03-11] MEDS: TRAZODONE 100MG TABLET PO SCH (20:18)
[2018-03-12 05:48] VITALS: BP_SYST 103; BP_SYST 112; BP_DIAS 59; BP_DIAS 76
[2018-03-12 07:33] VITALS: BP 103/70
[2018-03-12 07:39] VITALS: BP 103/70
[2018-03-12] MEDS: ACAMPROSATE 333 MG TABLET.DR PO SCH ×3 (08:36→21:22)
[2018-03-12] MEDS: THIAMINE 100MG TABLET PO SCH (08:36)
[2018-03-12] MEDS: VENLAFAXINE XR 37.5MG CAP.ER.24H PO SCH (08:37)
[2018-03-12 19:37] VITALS: BP 111/77
[2018-03-12] MEDS: TRAZODONE 100MG TABLET PO SCH (21:23)
[2018-03-13 07:57] VITALS: BP 100/67
[2018-03-13] MEDS: VENLAFAXINE XR 37.5MG CAP.ER.24H PO SCH (09:58)
[2018-03-13] MEDS: ACAMPROSATE 333 MG TABLET.DR PO SCH ×3 (09:58→20:08)
[2018-03-13] MEDS: THIAMINE 100MG TABLET PO SCH (09:58)
[2018-03-13 19:28] VITALS: BP 127/83
[2018-03-13] MEDS: TRAZODONE 100MG TABLET PO SCH (20:08)
[2018-03-14 07:35] VITALS: BP 110/71
[2018-03-14] MEDS: THIAMINE 100MG TABLET PO SCH (08:59)
[2018-03-14] MEDS: ACAMPROSATE 333 MG TABLET.DR PO SCH ×3 (08:59→20:24)
[2018-03-14] MEDS: VENLAFAXINE XR 37.5MG CAP.ER.24H PO SCH (08:59)
[2018-03-14 19:12] VITALS: BP 117/79
[2018-03-14] MEDS: TRAZODONE 100MG TABLET PO SCH (20:24)
[2018-03-15 07:25] VITALS: BP 99/64
[2018-03-15] MEDS: VENLAFAXINE XR 37.5MG CAP.ER.24H PO SCH (09:20)
[2018-03-15] MEDS: ACAMPROSATE 333 MG TABLET.DR PO SCH ×3 (09:21→20:38)
[2018-03-15] MEDS: THIAMINE 100MG TABLET PO SCH (09:21)
[2018-03-15 19:56] VITALS: BP 119/81
[2018-03-15] MEDS: TRAZODONE 100MG TABLET PO SCH (20:38)
[2018-03-16 08:05] VITALS: BP 109/68
[2018-03-16] MEDS: ACAMPROSATE 333 MG TABLET.DR PO SCH ×3 (08:11→21:22)
[2018-03-16] MEDS: THIAMINE 100MG TABLET PO SCH (08:11)
[2018-03-16] MEDS: VENLAFAXINE XR 37.5MG CAP.ER.24H PO SCH (08:11)
[2018-03-16 19:40] VITALS: BP 118/78
[2018-03-16] MEDS: TRAZODONE 100MG TABLET PO SCH (21:23)
[2018-03-17 07:51] VITALS: BP 107/74
[2018-03-17] MEDS: VENLAFAXINE XR 37.5MG CAP.ER.24H PO SCH (08:03)
[2018-03-17] MEDS: THIAMINE 100MG TABLET PO SCH (08:03)
[2018-03-17] MEDS: ACAMPROSATE 333 MG TABLET.DR PO SCH (08:03)
== END 2018-03-17 09:35 | disposition home or self-care (01) | DRG 885 ==
LOC: 3E 11:21
PROVIDERS: ADMIT Psychiatry & Neurology Psychosomatic Medicine; ATTEND Psychiatry & Neurology Psychosomatic Medicine
DX: F33.1 Major depressive disorder, recurrent, moderate (principal); R45.851 Suicidal ideations; Y90.0 Blood alcohol level of less than 20 mg/100 ml; D75.89 Other specified diseases of blood and blood-forming organs; F43.10 Post-traumatic stress disorder, unspecified; F10.20 Alcohol dependence, uncomplicated; R74.0 Nonspecific elevation of levels of transaminase and lactic acid dehydrogenase [LDH]; Z82.49 Family history of ischemic heart disease and other diseases of the circulatory system; Z83.3 Family history of diabetes mellitus; Z80.8 Family history of malignant neoplasm of other organs or systems; Z83.49 Family history of other endocrine, nutritional and metabolic diseases; Z87.891 Personal history of nicotine dependence; Z59.0 Homelessness
CPT/HCPCS: 36415; 80061; 82140; 82607; 82746; 84439; 84443; 86592; 92522-GN

== ENCOUNTER 2018-03-24 13:13 | Emergency (ER) | payer MEDICAID ==
[~2018-03-24] VITALS: Ht 182.9 cm; Wt 75.0 kg
[2018-03-24] MEDS ORDERED: SODIUM CHLORIDE FLUSH 10ML SYR IVF ONE (13:30)
[2018-03-24] MEDS ORDERED: ONDANSETRON 2MG/ML, 2ML IVPush ONE (13:30)
[2018-03-24] MEDS ORDERED: SODIUM CHLORIDE 0.9% 1,000ML IVBOLUS ONE (13:30)
[2018-03-24] MEDS ORDERED: LORazepam 2 MG/ML, 1ML IVPush PRN (13:30)
[2018-03-24] MEDS ORDERED: THIAMINE 100 MG in SODIUM CHLORIDE 0.9% 50 ML IVPB ONE (13:30)
[2018-03-24 13:55] LABS: MEAN CORPUSCULAR HEMOGLOBIN 32.8 pg (27.5-34.5); MEAN CORPUSCULAR HGB CONC 32.9 g/dL (33.2-36.2); MEAN CORPUSCULAR VOLUME 99.7 fL (81-97); RED BLOOD COUNT 4.76 x10^6/uL (4.38-5.82)
[2018-03-24 13:56] LABS: BASOPHILS # (AUTO) 0.07 x10^3/uL (0-0.1); BASOPHILS % (AUTO) 1 % (0-1); EOSINOPHILS % (AUTO) 0 % (1-7); LYMPHOCYTES # (AUTO) 1.19 x10^3/uL (1-3.4); LYMPHOCYTES % (AUTO) 11 % (22-44); MEAN PLATELET VOLUME 6.9 fL (7.4-10.4); MONOCYTES # (AUTO) 0.06 x10^3/uL (0.2-0.8); MONOCYTES % (AUTO) 1 % (2-9); NEUTROPHILS # (AUTO) 9.03 x10^3/uL (1.8-6.8); NEUTROPHILS % (AUTO) 87 % (42-75); PLATELET COUNT 438 x10^3/uL (130-400); RED CELL DISTRIBUTION WIDTH 14.9 % (9.4-14.8)
[2018-03-24 13:57] LABS: MD NO
[2018-03-24 14:00] LABS: ALBUMIN 4.1 g/dL (3.4-5.0); CALCIUM 8.7 mg/dL (8.5-10.1); CHLORIDE 104 mmol/L (98-107); CREATININE 1.16 mg/dL (0.7-1.3)
[2018-03-24 14:10] LABS: ANION GAP 22 mmol/L (5-15)
[2018-03-24 15:07] VITALS: BP 130/80
== END 2018-03-24 15:37 | disposition home or self-care (01) ==
LOC: ED 15:35
DX: F10.20 Alcohol dependence, uncomplicated (principal); R00.0 Tachycardia, unspecified
CPT/HCPCS: 36415; 80048; 82040; 85025; 93005; 96365; 99284; J3411; J7030

== ENCOUNTER 2018-04-08 00:59 | Inpatient (IN) | payer MEDICAID ==
[~2018-04-08] VITALS: Ht 182.9 cm; Wt 80.0 kg
[2018-04-08] MEDS ORDERED: LORazepam 2 MG/ML, 1ML ONE ×2 (01:24→03:29)
[2018-04-08] MEDS ORDERED: LORazepam 2 MG/ML, 1ML IVPush ONE ×3 (01:30→03:30)
[2018-04-08 01:44] LABS: BASOPHILS # (AUTO) 0.01 x10^3/uL (0-0.1); BASOPHILS % (AUTO) 0 % (0-1); EOSINOPHILS # (AUTO) 0.01 x10^3/uL (0-0.4); EOSINOPHILS % (AUTO) 0 % (1-7); LYMPHOCYTES % (AUTO) 6 % (22-44); MD NO; MEAN CORPUSCULAR HEMOGLOBIN 32.8 pg (27.5-34.5); MEAN CORPUSCULAR HGB CONC 34.1 g/dL (33.2-36.2); MEAN CORPUSCULAR VOLUME 96.4 fL (81-97); MEAN PLATELET VOLUME 6.5 fL (7.4-10.4); MONOCYTES # (AUTO) 0.08 x10^3/uL (0.2-0.8); MONOCYTES % (AUTO) 1 % (2-9); NEUTROPHILS # (AUTO) 11.74 x10^3/uL (1.8-6.8); NEUTROPHILS % (AUTO) 94 % (42-75); PLATELET COUNT 345 x10^3/uL (130-400); RED BLOOD COUNT 4.12 x10^6/uL (4.38-5.82); RED CELL DISTRIBUTION WIDTH 14.5 % (9.4-14.8)
[2018-04-08 01:55] LABS: ALANINE AMINOTRANSFERASE 80 U/L (12-78); ALBUMIN 3.5 g/dL (3.4-5.0); ANION GAP 9 mmol/L (5-15); CHLORIDE 98 mmol/L (98-107); CREATININE 1.11 mg/dL (0.7-1.3)
[2018-04-08 01:57] LABS: ALKALINE PHOSPHATASE 87 U/L (45-117); BILIRUBIN,TOTAL 0.4 mg/dL (0.2-1.0); TOTAL PROTEIN 7.3 g/dL (6.4-8.2)
[2018-04-08] MEDS ORDERED: ONDANSETRON 2MG/ML, 2ML IVPush PRN ×2 (04:30→05:30)
[2018-04-08] MEDS: SODIUM CHLORIDE 0.9% 1,000 ML IV SCH ×2 (05:18→20:04)
[2018-04-08] MEDS ORDERED: CHLORDIAZEPOXIDE 25 MG CAPSULE PO SCH (05:30)
[2018-04-08] MEDS ORDERED: BISACODYL 10 MG SUPP PR PRN (05:30)
[2018-04-08] MEDS ORDERED: GABAPENTIN 300 MG CAPSULE PO PRN (05:30)
[2018-04-08] MEDS ORDERED: LORazepam 1MG TABLET PO PRN ×4 (05:30)
[2018-04-08] MEDS ORDERED: DOCUSATE 100 MG CAPSULE PO PRN (05:30)
[2018-04-08] MEDS ORDERED: PROMETHAZINE 25 MG/ML, 1ML IM PRN (05:30)
[2018-04-08] MEDS ORDERED: hydrALAzine 20 MG/ML, 1ML IVPush PRN (05:30)
[2018-04-08] MEDS ORDERED: POLYETHYLENE GLYCOL 17 GM PACKET PO PRN (05:30)
[2018-04-08] MEDS ORDERED: LORazepam 2 MG/ML, 1ML IV PRN ×4 (05:30)
[2018-04-08] MEDS ORDERED: LORazepam 0.5MG TABLET PO PRN (05:30)
[2018-04-08] MEDS ORDERED: ONDANSETRON ODT 4 MG PO PRN (05:30)
[2018-04-08] MEDS ORDERED: LABETALOL 5MG/ML, 20ML IVPush PRN (05:30)
[2018-04-08] MEDS: HEPARIN 5,000 UNITS/ML, 1ML SQ SCH ×3 (06:00→21:45)
[2018-04-08] MEDS: LORazepam 2 MG/ML, 1ML IV PRN ×2 (06:00→20:16)
[2018-04-08 06:31] LABS: FREE T4 (FREE THYROXINE) 0.8 ng/dL (0.76-1.46); THYROID STIMULATING HORMONE 1.23 mIU/L (0.358-3.740)
[2018-04-08] MEDS: POTASSIUM CHLORIDE 20 MEQ, MAGNESIUM SULFATE 2 GM, THIAMINE 200 MG, MVI ADULT 10 ML, FO... IV SCH ×2 (06:36→13:29)
[2018-04-08 06:39] LABS: HEMOGLOBIN A1C 5.6 % (4.2-6.3)
[2018-04-08 07:49] VITALS: BP 117/57
[2018-04-08] MEDS: GABAPENTIN 100 MG CAPSULE PO SCH ×3 (08:35→20:05)
[2018-04-08] MEDS: VENLAFAXINE 75 MG CAP ER PO SCH (08:35)
[2018-04-08] MEDS: HYDROXYZINE PAMOATE 25MG CAP PO SCH ×2 (08:35→20:04)
[2018-04-08 09:08] LABS: MICROSCOPIC NOT IND
[2018-04-08 09:13] LABS: CULTURE INDICATED? NO
[2018-04-08] MEDS ORDERED: MAGNESIUM SULFATE PMX 2GM/50ML 50 ML IV ONE (10:30)
[2018-04-08 15:30] VITALS: BP 104/64
[2018-04-08 19:40] VITALS: BP 97/58
[2018-04-08] MEDS ORDERED: TRAZODONE 100MG TABLET PO SCH (21:00)
[2018-04-09 01:46] VITALS: BP 104/62
[2018-04-09] MEDS: SODIUM CHLORIDE 0.9% 1,000 ML IV SCH (04:02)
[2018-04-09 05:56] LABS: BASOPHILS # (AUTO) 0.07 x10^3/uL (0-0.1); BASOPHILS % (AUTO) 1 % (0-1); EOSINOPHILS # (AUTO) 0.03 x10^3/uL (0-0.4); EOSINOPHILS % (AUTO) 0 % (1-7); LYMPHOCYTES # (AUTO) 1.04 x10^3/uL (1-3.4); LYMPHOCYTES % (AUTO) 11 % (22-44); MD NO; MEAN CORPUSCULAR HEMOGLOBIN 33.4 pg (27.5-34.5); MEAN CORPUSCULAR HGB CONC 34.6 g/dL (33.2-36.2); MEAN CORPUSCULAR VOLUME 96.5 fL (81-97); MEAN PLATELET VOLUME 7.6 fL (7.4-10.4); MONOCYTES # (AUTO) 0.24 x10^3/uL (0.2-0.8); MONOCYTES % (AUTO) 3 % (2-9); NEUTROPHILS # (AUTO) 8.27 x10^3/uL (1.8-6.8); NEUTROPHILS % (AUTO) 86 % (42-75); PLATELET COUNT 203 x10^3/uL (130-400); RED BLOOD COUNT 3.55 x10^6/uL (4.38-5.82); RED CELL DISTRIBUTION WIDTH 14.3 % (9.4-14.8)
[2018-04-09 06:20] LABS: ALANINE AMINOTRANSFERASE 46 U/L (12-78); ALBUMIN 2.7 g/dL (3.4-5.0); ALKALINE PHOSPHATASE 73 U/L (45-117); BILIRUBIN,TOTAL 0.7 mg/dL (0.2-1.0); CALCIUM 7.7 mg/dL (8.5-10.1); CHOL/HDL RATIO 1.7; CHOLESTEROL, TOTAL 151 mg/dL (140-239); CREATININE 0.97 mg/dL (0.7-1.3); HDL CHOL % 60 % (26-37); HDL CHOLESTEROL (DIRECT) 91 mg/dL (40-60); LDL CHOLESTEROL,CALCULATED 46 mg/dL (54-169); LDL/HDL RATIO 0.5 (0.5-3.0); TOTAL PROTEIN 6.3 g/dL (6.4-8.2); TRIGLYCERIDES 68 mg/dL (50-200); VLDL CHOLESTEROL 14 mg/dL (0-25)
[2018-04-09] MEDS: POTASSIUM CHLORIDE 20 MEQ, MAGNESIUM SULFATE 2 GM, THIAMINE 200 MG, MVI ADULT 10 ML, FO... IV SCH (06:22)
[2018-04-09] MEDS: HEPARIN 5,000 UNITS/ML, 1ML SQ SCH ×2 (06:22→13:30)
[2018-04-09 06:27] LABS: ANION GAP 7 mmol/L (5-15); CHLORIDE 103 mmol/L (98-107)
[2018-04-09] MEDS: LORazepam 2 MG/ML, 1ML IV PRN (06:35)
[2018-04-09 06:45] VITALS: BP 130/79
[2018-04-09] MEDS: VENLAFAXINE 75 MG CAP ER PO SCH (08:28)
[2018-04-09] MEDS: GABAPENTIN 100 MG CAPSULE PO SCH (08:28)
[2018-04-09] MEDS: HYDROXYZINE PAMOATE 25MG CAP PO SCH (08:28)
[2018-04-09] MEDS ORDERED: GABA-826 PO (11:44)
[2018-04-09] MEDS ORDERED: VENL150C PO (11:44)
[2018-04-09] MEDS ORDERED: TRAZ-137 PO (11:44)
[2018-04-09] MEDS ORDERED: THIA100T67 PO (11:44)
[2018-04-09] MEDS ORDERED: HYDR50CA PO (11:44)
[2018-04-09] MEDS ORDERED: MULT1TAB60 PO (11:44)
[2018-04-09] MEDS ORDERED: FOLI-17 PO (11:44)
[2018-04-09 13:48] VITALS: BP 117/75
== END 2018-04-09 16:10 | disposition home or self-care (01) | DRG 432 ==
LOC: ED 01:18 → EDIP 04:04 → 4WST 05:04 → DCLOUNGE 04-09 15:54
PROVIDERS: ADMIT Internal Medicine; ATTEND Internal Medicine
DX: K70.10 Alcoholic hepatitis without ascites (principal); E43 Unspecified severe protein-calorie malnutrition; F10.239 Alcohol dependence with withdrawal, unspecified; R45.851 Suicidal ideations; D69.59 Other secondary thrombocytopenia; F10.229 Alcohol dependence with intoxication, unspecified; F17.210 Nicotine dependence, cigarettes, uncomplicated; F32.9 Major depressive disorder, single episode, unspecified; F41.9 Anxiety disorder, unspecified; G40.909 Epilepsy, unspecified, not intractable, without status epilepticus; G62.1 Alcoholic polyneuropathy; Y90.8 Blood alcohol level of 240 mg/100 ml or more; Z79.899 Other long term (current) drug therapy; Z82.49 Family history of ischemic heart disease and other diseases of the circulatory system; Z83.3 Family history of diabetes mellitus; Z68.23 Body mass index [BMI] 23.0-23.9, adult; Z59.0 Homelessness
CPT/HCPCS: 36415; 99285; J7042; 80053; 80061; 80307; 81003; 83036; 83735; 84439; 84443; 85025; 93005; 96374; 96376; G0378; J1644; J3411; J3475; J3480; J2060; J7030

== ENCOUNTER 2018-04-23 21:08 | Emergency (ER) | payer MEDICAID ==
[~2018-04-23] VITALS: Ht 185.4 cm; Wt 80.0 kg
[~2018-04-23 21:08] MED LIST changes: +MULT1TAB60 PO; -PROP10TA PO; +PROP10TA16 PO
[2018-04-23] MEDS ORDERED: LORazepam 2 MG/ML, 1ML ONE ×2 (21:16→21:49)
[2018-04-23] MEDS ORDERED: LORazepam 2 MG/ML, 1ML IVPush ONE (21:30)
[2018-04-23 21:51] LABS: BASOPHILS # (AUTO) 0.01 x10^3/uL (0-0.1); BASOPHILS % (AUTO) 0 % (0-1); EOSINOPHILS # (AUTO) 0.04 x10^3/uL (0-0.4); EOSINOPHILS % (AUTO) 1 % (1-7); LYMPHOCYTES # (AUTO) 0.26 x10^3/uL (1-3.4); LYMPHOCYTES % (AUTO) 5 % (22-44); MD NO; MEAN CORPUSCULAR HEMOGLOBIN 32.9 pg (27.5-34.5); MEAN CORPUSCULAR HGB CONC 33.7 g/dL (33.2-36.2); MEAN CORPUSCULAR VOLUME 97.7 fL (81-97); MEAN PLATELET VOLUME 6.3 fL (7.4-10.4); MONOCYTES # (AUTO) 0.55 x10^3/uL (0.2-0.8); MONOCYTES % (AUTO) 11 % (2-9); NEUTROPHILS # (AUTO) 4.24 x10^3/uL (1.8-6.8); NEUTROPHILS % (AUTO) 83 % (42-75); PLATELET COUNT 278 x10^3/uL (130-400); RED BLOOD COUNT 3.57 x10^6/uL (4.38-5.82); RED CELL DISTRIBUTION WIDTH 15.8 % (9.4-14.8)
--- NOTE | 2018-04-23 21:52 | NUR ---
PT STATES MODERATE RELIEF POST MED. PT REMAINS MILDLY SHAKEY AT THIS TIME. PT ON ALL MONITORING. BED RAILS UPX2. CALL LIGHT ON LAP.
[2018-04-23 22:00] LABS: ALANINE AMINOTRANSFERASE 60 U/L (12-78); ANION GAP 11 mmol/L (5-15); CALCIUM 8.1 mg/dL (8.5-10.1); CHLORIDE 97 mmol/L (98-107); CREATININE 0.83 mg/dL (0.7-1.3)
[2018-04-23 22:02] LABS: ALKALINE PHOSPHATASE 77 U/L (45-117); BILIRUBIN,TOTAL 0.4 mg/dL (0.2-1.0); TOTAL PROTEIN 6.9 g/dL (6.4-8.2)
[2018-04-23 23:06] VITALS: BP 111/69
== END 2018-04-23 23:09 | disposition home or self-care (01) ==
LOC: ED 21:54
DX: F10.239 Alcohol dependence with withdrawal, unspecified (principal); G40.909 Epilepsy, unspecified, not intractable, without status epilepticus; F32.9 Major depressive disorder, single episode, unspecified; Z72.9 Problem related to lifestyle, unspecified; Z87.891 Personal history of nicotine dependence
CPT/HCPCS: 36415; 80053; 85025; 96374; 99283; J2060

== ENCOUNTER 2018-05-15 20:57 | Emergency (ER) | payer MEDICAID ==
[~2018-05-15] VITALS: Ht 182.9 cm; Wt 74.0 kg
[2018-05-15] MEDS ORDERED: LIDOCAINE 2%, 20ML SQ ONE (21:30)
--- NOTE | 2018-05-15 21:36 | NUR ---
PT IN HOSPITAL GOWN, PRESENTS WITH MULTIPLE WOUNDS. PT ON VITALS MONITORS. WOUNDS ON BILAT LEGS CLEANED BY TECH. ERP HAS EVALUTED PT BILAT BEDRAILS UP. WILL CONTINUE TO MONITOR.
[2018-05-15] MEDS ORDERED: LIDOCAINE-MPF 1%, 2ML ONE (22:49)
[2018-05-15] MEDS ORDERED: BACITRACIN ZINC OINT 500U/GM, 0.9 GM ONE (23:48)
--- NOTE | 2018-05-16 00:18 | NUR ---
PT DESATING ON RA TO 72%. PT PLACE DON 2L PER N/C, NOW SATING 99%.
--- NOTE | 2018-05-16 01:00 | NUR ---
PT RESTING CALMLY IN BED. NO NEEDS AT THIS TIME. CALL LIGHT WITHIN REACH. PT VSS.
--- NOTE | 2018-05-16 02:20 | NUR ---
PT ABLE TO AMBULATE STEADILY IN HALLS. VSS. PT SATING 96% ON RA
--- NOTE | 2018-05-16 03:01 | NUR ---
PT ABLE TO DRESS HIMSELF. PT GIVEN NEW BOTTOMS AND BLANKET.
[2018-05-16 03:04] VITALS: BP 114/89
== END 2018-05-16 03:05 | disposition home or self-care (01) ==
LOC: ED 21:27
DX: S06.0X9A Concussion with loss of consciousness of unspecified duration, initial encounter (principal); S81.811A Laceration without foreign body, right lower leg, initial encounter; G40.909 Epilepsy, unspecified, not intractable, without status epilepticus; F10.120 Alcohol abuse with intoxication, uncomplicated; Z87.891 Personal history of nicotine dependence; W01.0XXA Fall on same level from slipping, tripping and stumbling without subsequent striking against object, initial encounter; Y93.89 Activity, other specified; Y92.89 Other specified places as the place of occurrence of the external cause; Y99.8 Other external cause status
CPT/HCPCS: 12032; 70450; 99284

== ENCOUNTER 2018-06-12 15:37 | Emergency (ER) | payer MEDICAID ==
[~2018-06-12] VITALS: Ht 182.9 cm; Wt 78.6 kg
--- NOTE | 2018-06-12 15:58 | NUR ---
PT WANTS TO DETOX FROM ALCOHOL WITH RECENT ATTEMPTS TO DETOX. PT DENIES ANY OTHER MEDICAL COMPLAINT. PT REPORTS HIS LAST DRINK WAS 6 HOURS AGO. PT ON MONITOR AND URINAL GIVEN TYO PATIENT. REPORT TO YOAN MCCARTHY.
--- NOTE | 2018-06-12 15:59 | NUR ---
PT STATED THAT HE WANTS TO DETOX. REPORTS HAVING HX OF SEIZURES. PT STATED THAT HE DRANK TODAY BUT DOES NOT STATE HOW MUCH.
--- NOTE | 2018-06-12 16:05 | NUR ---
Pt is connected to the monitor. Call light within reach.
[2018-06-12 16:10] LABS: BASOPHILS # (AUTO) 0.02 x10^3/uL (0-0.1); BASOPHILS % (AUTO) 0 % (0-1); EOSINOPHILS % (AUTO) 2 % (1-7); LYMPHOCYTES # (AUTO) 2.21 x10^3/uL (1-3.4); LYMPHOCYTES % (AUTO) 35 % (22-44); MD NO; MEAN CORPUSCULAR HEMOGLOBIN 32.1 pg (27.5-34.5); MEAN CORPUSCULAR HGB CONC 33.7 g/dL (33.2-36.2); MEAN CORPUSCULAR VOLUME 95.3 fL (81-97); MEAN PLATELET VOLUME 6.9 fL (7.4-10.4); MONOCYTES # (AUTO) 0.47 x10^3/uL (0.2-0.8); MONOCYTES % (AUTO) 8 % (2-9); NEUTROPHILS # (AUTO) 3.48 x10^3/uL (1.8-6.8); NEUTROPHILS % (AUTO) 56 % (42-75); PLATELET COUNT 483 x10^3/uL (130-400); RED BLOOD COUNT 4.51 x10^6/uL (4.38-5.82); RED CELL DISTRIBUTION WIDTH 16.5 % (9.4-14.8)
[2018-06-12 16:20] LABS: ALBUMIN 3.7 g/dL (3.4-5.0); ANION GAP 9 mmol/L (5-15); CHLORIDE 110 mmol/L (98-107)
[2018-06-12 16:26] LABS: ALANINE AMINOTRANSFERASE 55 U/L (12-78); ALKALINE PHOSPHATASE 85 U/L (45-117); BILIRUBIN,TOTAL 0.3 mg/dL (0.2-1.0); CREATININE 1.13 mg/dL (0.7-1.3); TOTAL PROTEIN 7.7 g/dL (6.4-8.2)
--- NOTE | 2018-06-12 16:40 | NUR ---
PA at bedside.
--- NOTE | 2018-06-12 17:09 | NUR ---
Pt is resting in bed with eyes closed, O2 Sat decreased to 89% while sleeping. Pt placed on 3L of oxygen. O2 Sat increased to 98%. Respirations equal and non labored. NAD. Pt is connected to the monitor. Call light within reach.
--- NOTE | 2018-06-12 18:20 | NUR ---
Pt is resting in bed with eyes closed, respirations equal and non labored. NAD. Pt is connected to the monitor. Call light within reach.
--- NOTE | 2018-06-12 19:13 | NUR ---
Report given to Jyothi MCCARTHY.
--- NOTE | 2018-06-12 19:24 | NUR ---
report received from jasmin akers. pt resting with eyes closed, opens eyes to verbal response and quicly nods back off, monitors in place, call light within reach, pt aware of need for urine sample, urine cup provided.
--- NOTE | 2018-06-12 19:51 | NUR ---
discussed need for urine sample with pt, pt attempting to get sample
--- NOTE | 2018-06-12 19:57 | NUR ---
urine sample taken to lab
--- NOTE | 2018-06-12 20:36 | NUR ---
PT RESTING WITH EYES CLOSED, OPENS EYES TO VERBAL RESPONSE, A&O TO SELF AND PLACE, REORIENTED PT TO TIME AND EVENT, DENIES NEEDS, MONITORS IN PLACE, SIDERAILS UP X2, CALL LIGHT WITHIN REACH. AWAITING URINE RESULT
[2018-06-12 20:39] LABS: AMPHETAMINE SCREEN, URINE Negative (Negative); BARBITURATE SCREEN, URINE Negative (Negative); BENZODIAZEPINE SCREEN, URINE Positive (Negative); CANNABINOID SCREEN, URINE Negative (Negative); COCAINE SCREEN, URINE Negative (Negative); METHADONE SCREEN, URINE Negative (Negative); OPIATE SCREEN, URINE Negative (Negative)
--- NOTE | 2018-06-12 21:20 | NUR ---
PT ALERT ANSD ANSWERING QUESTIONS APPROPRIATELY, ABLE TO AMBULATE TO SNEED WITHOUT DIFFICULTY, PT NOW RESTING IN BED, MONITORS IN PLACE, CALL LIGHT WITHIN REACH
[2018-06-12 21:46] VITALS: BP 100/56
== END 2018-06-12 22:01 | disposition home or self-care (01) ==
LOC: ED 17:25
DX: F10.220 Alcohol dependence with intoxication, uncomplicated (principal); F32.9 Major depressive disorder, single episode, unspecified; G43.909 Migraine, unspecified, not intractable, without status migrainosus; Z72.9 Problem related to lifestyle, unspecified; Y90.9 Presence of alcohol in blood, level not specified
CPT/HCPCS: 36415; 80053; 80307; 85025; 99283

== ENCOUNTER 2018-06-13 22:46 | Emergency (ER) | payer MEDICAID ==
[~2018-06-13] VITALS: Ht 182.9 cm; Wt 81.3 kg
[2018-06-13 22:48] VITALS: BP 145/87
--- NOTE | 2018-06-13 22:52 | NUR ---
PT PLACED ON WALL UNTIL SAFE ROOM IS AVAILBLE. PT SITITNG AT NURSES STATION AT THIS TIME. TELEVISION ANTENNA INSTALLER INFORMED OF SI.
--- NOTE | 2018-06-14 00:28 | NUR ---
PT RESTING IN CHAIR, IN VIEW OF THIS RN, NO COMPLAINTS AT THIS TIME
[2018-06-14 01:22] LABS: BASOPHILS # (AUTO) 0.11 x10^3/uL (0-0.1); BASOPHILS % (AUTO) 2 % (0-1); EOSINOPHILS # (AUTO) 0.04 x10^3/uL (0-0.4); EOSINOPHILS % (AUTO) 1 % (1-7); LYMPHOCYTES # (AUTO) 2.08 x10^3/uL (1-3.4); LYMPHOCYTES % (AUTO) 38 % (22-44); MD NO; MEAN CORPUSCULAR HGB CONC 33.7 g/dL (33.2-36.2); MEAN CORPUSCULAR VOLUME 94.8 fL (81-97); MEAN PLATELET VOLUME 6.9 fL (7.4-10.4); MONOCYTES # (AUTO) 0.44 x10^3/uL (0.2-0.8); MONOCYTES % (AUTO) 8 % (2-9); NEUTROPHILS # (AUTO) 2.81 x10^3/uL (1.8-6.8); NEUTROPHILS % (AUTO) 51 % (42-75); PLATELET COUNT 413 x10^3/uL (130-400); RED BLOOD COUNT 4.54 x10^6/uL (4.38-5.82); RED CELL DISTRIBUTION WIDTH 16.6 % (9.4-14.8)
[2018-06-14 01:33] LABS: ALBUMIN 3.7 g/dL (3.4-5.0); ANION GAP 9 mmol/L (5-15); CALCIUM 8.1 mg/dL (8.5-10.1); CHLORIDE 110 mmol/L (98-107); CREATININE 0.86 mg/dL (0.7-1.3)
--- NOTE | 2018-06-14 01:34 | NUR ---
PT DENIES SI/HI AT THIS TIME, STATES HE FEELS MUCH BETTER, WILL BE DISCHARGED IN CARE OF FRIEND.
[2018-06-14 01:38] LABS: SALICYLATE LEVEL < 1.7 mg/dL (2.8-20.0)
[2018-06-14 01:39] LABS: ACETAMINOPHEN < 2 mcg/mL (10-30)
== END 2018-06-14 01:46 | disposition home or self-care (01) ==
LOC: ED 06-14 00:13
DX: F10.220 Alcohol dependence with intoxication, uncomplicated (principal); Z72.9 Problem related to lifestyle, unspecified
CPT/HCPCS: 36415; 80048; 80307; 80329; 82040; 85025; 99283; G0480

== ENCOUNTER 2018-06-24 15:07 | Emergency (ER) | payer MEDICAID ==
[~2018-06-24] VITALS: Ht 182.9 cm; Wt 79.5 kg
--- NOTE | 2018-06-24 15:27 | NUR ---
LATE NOTE ENTRY FOR 1509: Pt presents to ED by EMS from [place] ED due to "pt not being a ". Pt states, "a friend dropped me off there. I don't even know why. I guess to detox. I don't know if I want to stop drinking. I last drank a couple of hours ago a few beers and lemon extract (per EMS 85% alcohol content)." EMS states pt states he "normally drinks non-traditional alcohols." NADN. Pt ambulates from EMS [facility] to ED [facility] with steady gait and balance SBA. Pt sitting on [facility] in hospital gown connected to NIBP and continous pulse ox. All safety measures in place. No needs expressed. Call light within reach. Pt denies cp, sob, n/v/d, trauma, dizziness, lightheadedness, or headache.
[2018-06-24] MEDS ORDERED: TRAZ-137 PO (15:41)
[2018-06-24] MEDS ORDERED: DULO20CA45 PO (15:41)
[2018-06-24] MEDS ORDERED: HYDR25CA PO (15:41)
--- NOTE | 2018-06-24 16:57 | NUR ---
Pt resting on gurney asleep. NADN. No needs expressed. All safety measures in place. Call light within reach.
--- NOTE | 2018-06-24 19:13 | NUR ---
Provided bedside report to SHARI Hyman. All questions answered. SHARI Hyman to assume care of pt.
--- NOTE | 2018-06-24 19:13 | NUR ---
BEDSIDE REPORT FROM PRAKASH MCCARTHY. PT SLEEPING. VSS PT IN NAD. CALL LIGHT IN REACH
[2018-06-24 19:34] VITALS: BP 109/65
--- NOTE | 2018-06-24 19:50 | NUR ---
PT TO BE DISCHARGED. PT AWAKE. VSS. PT AMBULATORY WITH A STEADY GAIT.
--- NOTE | 2018-06-24 20:17 | NUR ---
Patient given discharge instructions and they have confirmed that they understand the instructions. Patient ambulatory with steady gait.
== END 2018-06-24 20:20 | disposition home or self-care (01) ==
LOC: EDBD → MERGE 15:07 → ED 20:14
DX: F10.220 Alcohol dependence with intoxication, uncomplicated (principal)
CPT/HCPCS: 99283

== ENCOUNTER 2018-06-26 12:35 | Emergency (ER) | payer MEDICAID ==
[~2018-06-26] VITALS: Ht 182.9 cm; Wt 79.5 kg
[~2018-06-26 12:35] MED LIST changes: +DULO20CA45 PO
[2018-06-26 12:40] VITALS: BP 119/87
--- NOTE | 2018-06-26 13:20 | NUR ---
ED MD AT BEDSIDE FOR EVAL.
--- NOTE | 2018-06-26 13:24 | NUR ---
CLOTHES MODEL ATTEMPTED TO AMBULATE PT. PT UNSTEADY AT THIS TIME.
--- NOTE | 2018-06-26 14:20 | NUR ---
PT TO ROOM 23, ASSUME CARE OF PT AT THIS TIME. PT SLEEPING, NAD. BED IN LOW POSITION, SR UP X 2, PT ORIENTED TO CALL LIGHT.
--- NOTE | 2018-06-26 15:19 | NUR ---
PT AWOKE AND AMBULATED WITH STEADY GAIT. PT COOPERATIVE WITH CARE, DECLINES RESOURCES FOR ALCOHOL CESSATION.
== END 2018-06-26 15:21 | disposition home or self-care (01) ==
LOC: ED 15:10
DX: F10.220 Alcohol dependence with intoxication, uncomplicated (principal)
CPT/HCPCS: 99283

== ENCOUNTER 2018-06-29 01:44 | Emergency (ER) | payer MEDICAID ==
--- NOTE | 2018-06-29 02:09 | NUR ---
PT BIB [facility] FOR STATEMENTS OF SI. PT REPORTEDLY DRANK " A LOT OF ALCOHOL" TONIGHT, AND WALKED INTO A JELLY DONUT AND STATED THAT HE WANTED TO SLIT HIS WRISTS WITH HIS POCKET KNIFE. PT ARRIVES TO [facility] WITH STABLE VS. DR. BAUMAN AT BEDSIDE. PT STATES THAT HE HAS BEEN DEPRESSED LATELY AND FEELING LIKE HE'S SHORT OF OPTIONS. PT COOPERATIVE AND CHANGED INTO GOWN. PT BELONGINGS PLACED INTO BAG AND LOCKED IN SECURED LOCKER. PT ROOM SECURED FOR PT AND STAFF SAFETY. GROCERY STORE CLERK NOTIFIED OF NEED FOR SITTER AT THIS TIME.
--- NOTE | 2018-06-29 03:14 | NUR ---
PT VICKI IN [facility] AT THIS TIME; KELLY. SITTER OUTSIDE OF PT ROOM FOR DIRECT OBSERVATION.
--- NOTE | 2018-06-29 04:04 | NUR ---
PT ASLEEP IN [facility] AT THIS TIME; KELLY. PT HAS SITTER OUTSIDE OF ROOM FOR DIRECT OBSERVATION OF PT.
[2018-06-29 04:54] LABS: BASOPHILS # (AUTO) 0.02 x10^3/uL (0-0.1); BASOPHILS % (AUTO) 1 % (0-1); EOSINOPHILS # (AUTO) 0.02 x10^3/uL (0-0.4); EOSINOPHILS % (AUTO) 1 % (1-7); LYMPHOCYTES % (AUTO) 51 % (22-44); MD NO; MEAN PLATELET VOLUME 6.6 fL (7.4-10.4); MONOCYTES # (AUTO) 0.22 x10^3/uL (0.2-0.8); MONOCYTES % (AUTO) 6 % (2-9); NEUTROPHILS # (AUTO) 1.46 x10^3/uL (1.8-6.8); NEUTROPHILS % (AUTO) 42 % (42-75); PLATELET COUNT 364 x10^3/uL (130-400); RED CELL DISTRIBUTION WIDTH 16.1 % (9.4-14.8)
[2018-06-29 05:10] LABS: ALBUMIN 3.6 g/dL (3.4-5.0); ANION GAP 8 mmol/L (5-15); CALCIUM 7.9 mg/dL (8.5-10.1); CHLORIDE 112 mmol/L (98-107)
[2018-06-29 05:37] LABS: ACETAMINOPHEN < 2 mcg/mL (10-30); SALICYLATE LEVEL < 1.7 mg/dL (2.8-20.0)
--- NOTE | 2018-06-29 06:38 | NUR ---
pt sleeping in bed at this time; ellie. pt has sitter outside of room at this time for direct observation.
--- NOTE | 2018-06-29 07:04 | NUR ---
received report from Sergo. pt calmly resting on gurney, NAD with equal chest rise/fall, no needs at this time, pt remains in safe environment, sitter in view.
--- NOTE | 2018-06-29 08:05 | NUR ---
(VS charted under wrong user name). pt upright on gurney awake, calm & cooperative, responds approp to staff, NAD, comfort measures provided, breakfast tray given, pt remains in safe environment, sitter in view.
--- NOTE | 2018-06-29 09:00 | NUR ---
pt remains upright on gurney awake, calm & cooperative, responds approp to staff, NAD, comfort measures provided, pt remains in safe environment, sitter in view.
[2018-06-29 09:02] LABS: AMPHETAMINE SCREEN, URINE Negative (Negative); BARBITURATE SCREEN, URINE Negative (Negative); BENZODIAZEPINE SCREEN, URINE Positive (Negative); CANNABINOID SCREEN, URINE Negative (Negative); COCAINE SCREEN, URINE Negative (Negative); METHADONE SCREEN, URINE Negative (Negative); OPIATE SCREEN, URINE Negative (Negative)
[2018-06-29] MEDS ORDERED: CHLORDIAZEPOXIDE 25 MG CAPSULE ONE ×4 (09:11→23:45)
[2018-06-29] MEDS: CHLORDIAZEPOXIDE 25 MG CAPSULE PO PRN ×4 (09:18→23:46)
--- NOTE | 2018-06-29 10:01 | NUR ---
pt upright on gurney awake, calm & cooperative, responds approp to staff, NAD, comfort measures provided, pt remains in safe environment, sitter in view.
--- NOTE | 2018-06-29 11:03 | NUR ---
pt upright on gurney with eyes closed, calm & cooperative, responds approp to staff, NAD, comfort measures provided, pt remains in safe environment, sitter in view.
--- NOTE | 2018-06-29 12:06 | NUR ---
pt remains upright on gurney with eyes closed, calm & cooperative, responds approp to staff, NAD, comfort measures provided, pt remains in safe environment, sitter in view.
--- NOTE | 2018-06-29 12:44 | NUR ---
lunch tray given
--- NOTE | 2018-06-29 13:00 | NUR ---
pt upright on gurney with eyes closed, calm & cooperative, responds approp to staff, NAD, comfort measures provided, pt remains in safe environment, sitter in view.
[2018-06-29] MEDS ORDERED: CHLORDIAZEPOXIDE 25 MG CAPSULE PO PRN ×2 (13:30→21:00)
--- NOTE | 2018-06-29 13:59 | NUR ---
TASK RN: EQUAL CHEST RISE WITH GOOD CAP REFILL. Patient is resting comfortably in bed. Vital Signs within normal limits.
--- NOTE | 2018-06-29 15:01 | NUR ---
pt upright on gurney awake, calm & cooperative, able to doze off at times, responds approp to staff, NAD, comfort measures provided, pt remains in safe environment, sitter in view.
[2018-06-29] MEDS ORDERED: ONDANSETRON ODT 4 MG ONE (15:58)
[2018-06-29] MEDS ORDERED: ONDANSETRON ODT 4 MG PO ONE (16:00)
--- NOTE | 2018-06-29 16:00 | NUR ---
pt remains upright on gurney awake, calm & cooperative, able to doze off at times, c/o persistent nausea- medicated per eMAR, responds approp to staff, NAD, comfort measures provided, pt remains in safe environment, sitter in view.
--- NOTE | 2018-06-29 16:59 | NUR ---
pt upright on gurney awake, calm & cooperative, watching TV, responds approp to staff, NAD, comfort measures provided, dinner tray given, pt remains in safe environment, sitter in view.
[2018-06-29] MEDS ORDERED: LORazepam 1MG TABLET ONE ×3 (17:30→21:57)
--- NOTE | 2018-06-29 17:47 | NUR ---
[facility] CALLED AND ON THE WAY
[2018-06-29] MEDS ORDERED: LORazepam 1MG TABLET PO ONE ×2 (18:00→20:30)
--- NOTE | 2018-06-29 18:12 | NUR ---
pt remains upright on gurney with eyes closed, calm & cooperative, responds approp to staff, NAD, comfort measures provided, pt remains in safe environment, sitter in view. pt increasingly tachycardic- ERP notifed, pt medicated per eMAR.
--- NOTE | 2018-06-29 18:34 | NUR ---
[facility] at for consult.
--- NOTE | 2018-06-29 19:01 | NUR ---
report given to Savannah MCCARTHY
--- NOTE | 2018-06-29 19:02 | NUR ---
RECEIVED BS REPORT FROM SHARI SUTTON TO ASSUME PT. CARE AT THIS TIME. PT. EATING DINNER TRAY; WE[facility] CARE IN TO EVAL PT. AND PT. TO BE A LEGAL HOLD.
--- NOTE | 2018-06-29 20:13 | NUR ---
PT. VERY TREMULOUS AND SWEATING. C/O NAUSEA ALSO. DR. MARCH UPDATED. NEW ORDERS RECEIVED AND PT. MEDICATED PER JUN. DENIES OTHER NEEDS. ROOM REMAINS SECURED. SITTER IN SNEED.
[2018-06-29] MEDS ORDERED: ONDANSETRON ODT 4 MG PO PRN (21:00)
[2018-06-29] MEDS ORDERED: LORazepam 1MG TABLET PO PRN (21:00)
[2018-06-29] MEDS ORDERED: ACETAMINOPHEN 325 MG TABLET PO PRN (21:00)
[2018-06-29] MEDS ORDERED: DULOXETINE 20 MG CAPSULE.DR PO SCH (21:00)
[2018-06-29] MEDS ORDERED: POLYETHYLENE GLYCOL 17 GM PACKET PO PRN (21:00)
[2018-06-29] MEDS ORDERED: TRAZODONE 100MG TABLET PO SCH (21:00)
[2018-06-29] MEDS ORDERED: BISACODYL 10 MG SUPP PR PRN (21:00)
[2018-06-29] MEDS ORDERED: TRAZODONE 50MG TABLET ONE (21:20)
--- NOTE | 2018-06-29 21:45 | NUR ---
assumed care of pt, received report from Ahmet MCCARTHY, whit, sitter in [facility], precautions observed, will continue to monitor.
[2018-06-29] MEDS ORDERED: PLEASE ENTER WEIGHT MC SCH (22:30)
--- NOTE | 2018-06-29 22:31 | NUR ---
patient very tremulous, sweating, complaining of nausea, medicated per emar, vitals signs wnl, will closely monitor, sitter in the hallway, SI precautions observed.
--- NOTE | 2018-06-29 22:50 | NUR ---
REPORT TO CARLOS ABREU
--- NOTE | 2018-06-29 23:13 | NUR ---
Walter from [facility] said the pt didn't meet the criteria and will need reevaluation tomorrow
--- NOTE | 2018-06-29 23:55 | NUR ---
Patient sleeping in [facility], sitter in the hallway, SI precautions observed, will continue to monitor.
--- NOTE | 2018-06-30 00:47 | NUR ---
patient sleeping in gurney, respirations even and unlabored, nad, sitter in view, SI precautions observed, will continue to monitor.
[2018-06-30 02:26] VITALS: BP 118/77
--- NOTE | 2018-06-30 02:32 | NUR ---
patient resting in gurney, respirations even and unlabored, nad, checked vitals, vitals WNL, sitter in view, SI precautions observed, will continue to monitor.
--- NOTE | 2018-06-30 03:10 | NUR ---
[facility] called for report about patient
--- NOTE | 2018-06-30 03:51 | NUR ---
patien asleep in gurney, respirations even and unlabored, NAD, sitter in view, SI precautions observed, will continue to monitor.
--- NOTE | 2018-06-30 04:48 | NUR ---
patient sleeping comfortably in gurney, respirations even and unlabored, NADN sitter in view, SI precautions observed, will continue to monitor.
--- NOTE | 2018-06-30 05:22 | NUR ---
Pt accepted at [facility], waiting for transport
--- NOTE | 2018-06-30 05:22 | NUR ---
patient awake in gurney, calm and cooperative, respirations even and unlabored, NADN sitter in view, SI precautions observed, will continue to monitor.
[2018-06-30] MEDS ORDERED: CHLORDIAZEPOXIDE 25 MG CAPSULE ONE (05:39)
[2018-06-30] MEDS: CHLORDIAZEPOXIDE 25 MG CAPSULE PO PRN (05:43)
--- NOTE | 2018-06-30 06:22 | NUR ---
still waiting for transport to [facility], patient aware of transfer, resting comfortably in gurney, respirations even and unlabored, KELLY sitter in view, SI precautions observed, will continue to monitor.
[2018-06-30] MEDS ORDERED: LORazepam 1MG TABLET PO PRN (07:00)
--- NOTE | 2018-06-30 07:00 | NUR ---
Report given to Tania MCCARTHY and Fern MCCARTHY
--- NOTE | 2018-06-30 07:07 | NUR ---
REPORT FROM TRACEY MCCARTHY, [facility] HERE TO TRANSPORT PT TO [place], 2 BAGS PT BELONGINGS SENT WITH PT.
[2018-06-30] MEDS ORDERED: FOLIC ACID 1 MG TABLET PO SCH (09:00)
[2018-06-30] MEDS ORDERED: THIAMINE 100MG TABLET PO SCH (09:00)
[2018-06-30] MEDS ORDERED: SENNA/DOCUSATE TABLET PO SCH (09:00)
== END 2018-06-30 07:15 ==
LOC: ED 01:52 → EDIP 20:12 → UNDOADMOB 20:12 → ED 06-30 07:15
DX: R45.851 Suicidal ideations (principal); F32.9 Major depressive disorder, single episode, unspecified; F17.200 Nicotine dependence, unspecified, uncomplicated
CPT/HCPCS: 36415; 80048; 80307; 80329; 82040; 85025; 99285; Q0162; G0480

== ENCOUNTER 2018-08-23 16:54 | Emergency (ER) | payer MEDICAID ==
[~2018-08-23] VITALS: Ht 182.9 cm; Wt 75.0 kg
--- NOTE | 2018-08-23 17:06 | NUR ---
THIS IS A 48 YEAR OLD MALE WHO WAS BIB AMBULANCE DUE TO ETOH INTOXICATION. PT STATES HE WANTS TO DETOX. PT STATES WAS A [facility] FOR DETOX A WEEK AGO. PT LAST ETOH WAS THIS AM, 3 EARTHQUAKES
[2018-08-23] MEDS ORDERED: CHLORDIAZEPOXIDE 25 MG CAPSULE ONE ×2 (17:23→19:11)
[2018-08-23] MEDS ORDERED: CHLORDIAZEPOXIDE 25 MG CAPSULE PO PRN (17:30)
[2018-08-23 17:33] LABS: BASOPHILS # (AUTO) 0.02 x10^3/uL (0-0.1); BASOPHILS % (AUTO) 0 % (0-1); EOSINOPHILS % (AUTO) 0 % (1-7); LYMPHOCYTES # (AUTO) 0.62 x10^3/uL (1-3.4); LYMPHOCYTES % (AUTO) 11 % (22-44); MD NO; MEAN CORPUSCULAR HEMOGLOBIN 31.3 pg (27.5-34.5); MEAN CORPUSCULAR HGB CONC 34.2 g/dL (33.2-36.2); MEAN CORPUSCULAR VOLUME 91.5 fL (81-97); MEAN PLATELET VOLUME 7.3 fL (7.4-10.4); MONOCYTES % (AUTO) 5 % (2-9); NEUTROPHILS # (AUTO) 4.76 x10^3/uL (1.8-6.8); NEUTROPHILS % (AUTO) 83 % (42-75); PLATELET COUNT 121 x10^3/uL (130-400); RED BLOOD COUNT 4.63 x10^6/uL (4.38-5.82)
[2018-08-23 17:42] LABS: ALANINE AMINOTRANSFERASE 60 U/L (12-78); ALBUMIN 3.4 g/dL (3.4-5.0); ANION GAP 13 mmol/L (5-15); CHLORIDE 103 mmol/L (98-107); CREATININE 1.02 mg/dL (0.7-1.3)
[2018-08-23 17:43] LABS: SALICYLATE LEVEL < 1.7 mg/dL (2.8-20.0)
[2018-08-23 17:44] LABS: ALKALINE PHOSPHATASE 79 U/L (45-117); BILIRUBIN,TOTAL 0.3 mg/dL (0.2-1.0); TOTAL PROTEIN 7.1 g/dL (6.4-8.2)
[2018-08-23 17:45] LABS: ACETAMINOPHEN < 2 mcg/mL (10-30)
--- NOTE | 2018-08-23 18:34 | NUR ---
MEAL PROVIDED, PT VERBALIZED NO OTHER NEEDS
[2018-08-23 19:08] VITALS: BP 114/69
--- NOTE | 2018-08-23 19:09 | NUR ---
PT RESTING ON GURLAPEER, MONITORS IN PLACE, CALL LIGHT WITHIN REACH.
--- NOTE | 2018-08-23 19:12 | NUR ---
PT MEDICATED PER MAR
[2018-08-23] MEDS ORDERED: CHLORDIAZEPOXIDE 25 MG CAPSULE PO ONE (19:30)
== END 2018-08-23 19:23 | disposition home or self-care (01) ==
LOC: ED 17:19
DX: F10.120 Alcohol abuse with intoxication, uncomplicated (principal); G40.909 Epilepsy, unspecified, not intractable, without status epilepticus; Z72.89 Other problems related to lifestyle; Y90.9 Presence of alcohol in blood, level not specified
CPT/HCPCS: 36415; 80053; 80307; 80329; 85025; 99283; G0480

== ENCOUNTER 2018-09-14 00:53 | Emergency (ER) | payer MEDICAID ==
[~2018-09-14] VITALS: Ht 182.9 cm; Wt 78.5 kg
[2018-09-14 00:57] VITALS: BP 110/76
== END 2018-09-14 01:34 | disposition home or self-care (01) ==
LOC: ED 01:29
DX: M79.672 Pain in left foot (principal); M79.671 Pain in right foot
CPT/HCPCS: 99282

== ENCOUNTER 2018-11-25 10:27 | Inpatient (IN) | payer MEDICAID ==
[~2018-11-25] VITALS: Ht 182.9 cm; Wt 78.1 kg
[2018-11-27 11:21] VITALS: BP 132/91
== END 2018-11-27 14:51 | disposition home or self-care (01) | DRG 74 ==
LOC: ED 15:04 → EDIP 19:24 → 4WST 21:25 → DCLOUNGE 11-27 14:38
PROVIDERS: ADMIT Internal Medicine; ATTEND Internal Medicine
DX: G62.1 Alcoholic polyneuropathy (principal); F10.230 Alcohol dependence with withdrawal, uncomplicated; F10.24 Alcohol dependence with alcohol-induced mood disorder; R45.851 Suicidal ideations; Z88.8 Allergy status to other drugs, medicaments and biological substances; F10.229 Alcohol dependence with intoxication, unspecified; I10 Essential (primary) hypertension; G40.909 Epilepsy, unspecified, not intractable, without status epilepticus; Z83.3 Family history of diabetes mellitus; Z82.49 Family history of ischemic heart disease and other diseases of the circulatory system; Z91.14 Patient's other noncompliance with medication regimen; Z91.5 Personal history of self-harm; Z87.891 Personal history of nicotine dependence; F32.9 Major depressive disorder, single episode, unspecified; Z80.8 Family history of malignant neoplasm of other organs or systems; Z83.49 Family history of other endocrine, nutritional and metabolic diseases; Z59.0 Homelessness
CPT/HCPCS: 36415; J7042; 80053; 80061; 80307; 82306; 82607; 83036; 83735; 84100; 84439; 84443; 85025; 93005; 96374; G0378; J1644; J3411; Q0162; C9113; J2060; J7030

== ENCOUNTER 2018-12-29 01:45 | Emergency (ER) | payer MEDICAID ==
[~2018-12-29] VITALS: Ht 185.4 cm; Wt 80.0 kg
[~2018-12-29 01:45] MED LIST changes: +DULO30CA2 PO; +FOLI0.8T2 PO
[2018-12-29] MEDS ORDERED: ONDANSETRON 2MG/ML, 2ML ONE (02:24)
[2018-12-29] MEDS ORDERED: LORazepam 2 MG/ML, 1ML ONE (02:25)
[2018-12-29] MEDS ORDERED: LORazepam 2 MG/ML, 1ML IVPush ONE (02:30)
[2018-12-29] MEDS ORDERED: ONDANSETRON 2MG/ML, 2ML IVPush ONE (02:30)
[2018-12-29] MEDS ORDERED: HYDR25CA PO (02:45)
[2018-12-29] MEDS ORDERED: LEXAPRO (02:45)
--- NOTE | 2018-12-29 02:47 | NUR ---
IV STARTED, PT ON VITALS MONITORS. PT MEDICATED PER EMAR FOR ANXIETY AND NAUSEA. LABS HAVING BEEN DRAWN. BILAT BEDRAILS UP. CALL LIGHT WITHIN REACH. PT GIVEN URINAL. WILL CONTINUE TO MONITOR.
[2018-12-29 02:54] LABS: BASOPHILS # (AUTO) 0.03 x10^3/uL (0-0.1); BASOPHILS % (AUTO) 1 % (0-1); EOSINOPHILS # (AUTO) 0.04 x10^3/uL (0-0.4); EOSINOPHILS % (AUTO) 1 % (1-7); LYMPHOCYTES # (AUTO) 1.18 x10^3/uL (1-3.4); LYMPHOCYTES % (AUTO) 28 % (22-44); MD NO; MEAN CORPUSCULAR HEMOGLOBIN 33.7 pg (27.5-34.5); MEAN CORPUSCULAR HGB CONC 33.5 g/dL (33.2-36.2); MEAN CORPUSCULAR VOLUME 100.6 fL (81-97); MEAN PLATELET VOLUME 6.9 fL (7.4-10.4); MONOCYTES # (AUTO) 0.54 x10^3/uL (0.2-0.8); MONOCYTES % (AUTO) 13 % (2-9); NEUTROPHILS # (AUTO) 2.37 x10^3/uL (1.8-6.8); NEUTROPHILS % (AUTO) 57 % (42-75); PLATELET COUNT 382 x10^3/uL (130-400); RED BLOOD COUNT 3.92 x10^6/uL (4.38-5.82); RED CELL DISTRIBUTION WIDTH 15.7 % (9.4-14.8)
--- NOTE | 2018-12-29 03:00 | NUR ---
PT PLACED ON 2L O2 PER N/C DUE TO DESATING TO 87% ON RA
[2018-12-29 03:04] LABS: ALANINE AMINOTRANSFERASE 81 U/L (12-78); ALBUMIN 3.4 g/dL (3.4-5.0); ANION GAP 9 mmol/L (5-15); CALCIUM 8.2 mg/dL (8.5-10.1); CHLORIDE 104 mmol/L (98-107); CREATININE 1.07 mg/dL (0.7-1.3)
[2018-12-29 03:06] LABS: ALKALINE PHOSPHATASE 59 U/L (45-117); BILIRUBIN,TOTAL 0.3 mg/dL (0.2-1.0); TOTAL PROTEIN 7.1 g/dL (6.4-8.2)
--- NOTE | 2018-12-29 03:30 | NUR ---
PT RESTING IN BED WITH EYES CLOSED. VSS, WILL CONTINUE TO MONITOR.
[2018-12-29 03:53] VITALS: BP 112/77
== END 2018-12-29 03:56 | disposition home or self-care (01) ==
LOC: ED 03:46
DX: K29.20 Alcoholic gastritis without bleeding (principal); F10.129 Alcohol abuse with intoxication, unspecified; Y90.0 Blood alcohol level of less than 20 mg/100 ml; R11.2 Nausea with vomiting, unspecified; Z87.891 Personal history of nicotine dependence; G40.909 Epilepsy, unspecified, not intractable, without status epilepticus; Z72.9 Problem related to lifestyle, unspecified
CPT/HCPCS: 36415; 80053; 80307; 83690; 85025; 96374; 96375; 99283; J2060; J2405

== ENCOUNTER 2019-08-03 20:50 | Emergency (ER) | payer MEDICAID ==
[~2019-08-03 20:50] MED LIST changes: -HYDR50TA13 PO; +HYDR50TA99 PO; +LEXAPRO; -TRAZ-137 PO; +TRAZ-175 PO
[2019-08-03 21:58] LABS: BASOPHILS # (AUTO) 0.02 x10^3/uL (0-0.1); BASOPHILS % (AUTO) 0 % (0-1); EOSINOPHILS # (AUTO) 0.11 x10^3/uL (0-0.4); EOSINOPHILS % (AUTO) 2 % (1-7); LYMPHOCYTES # (AUTO) 1.08 x10^3/uL (1-3.4); LYMPHOCYTES % (AUTO) 20 % (22-44); MD NO; MEAN CORPUSCULAR HEMOGLOBIN 32.3 pg (27.5-34.5); MEAN CORPUSCULAR HGB CONC 33.3 g/dL (33.2-36.2); MEAN PLATELET VOLUME 7.7 fL (7.4-10.4); MONOCYTES # (AUTO) 0.33 x10^3/uL (0.2-0.8); MONOCYTES % (AUTO) 6 % (2-9); NEUTROPHILS # (AUTO) 3.94 x10^3/uL (1.8-6.8); NEUTROPHILS % (AUTO) 72 % (42-75); PLATELET COUNT 206 x10^3/uL (130-400); RED BLOOD COUNT 4.59 x10^6/uL (4.38-5.82); RED CELL DISTRIBUTION WIDTH 17.3 % (9.4-14.8)
[2019-08-03 22:05] LABS: ANION GAP 5 mmol/L (5-15); CALCIUM 8.6 mg/dL (8.5-10.1); CHLORIDE 107 mmol/L (98-107); CREATININE 0.95 mg/dL (0.7-1.3)
[2019-08-03 22:06] LABS: ALBUMIN 3.7 g/dL (3.4-5.0)
[2019-08-04 00:24] VITALS: BP 129/88
--- NOTE | 2019-08-04 00:25 | NUR ---
BREAK RN: PT SLEEPING, NO DISTRESS NOTED. ALL VITALS REMAIN STABLE. CALL LIGHT WITHIN REACH
--- NOTE | 2019-08-04 01:16 | NUR ---
attempted to ambulate patient, pt unable to ambulate without assistance. Will continue to monitor
--- NOTE | 2019-08-04 04:20 | NUR ---
Pt ambulated down hallway without assistance.
== END 2019-08-04 04:23 | disposition home or self-care (01) ==
LOC: ED 22:40
DX: F10.120 Alcohol abuse with intoxication, uncomplicated (principal); Y90.0 Blood alcohol level of less than 20 mg/100 ml; G40.909 Epilepsy, unspecified, not intractable, without status epilepticus; Z72.9 Problem related to lifestyle, unspecified
CPT/HCPCS: 36415; 80048; 80307; 82040; 85025; 99283

== ENCOUNTER 2019-09-27 14:15 | Emergency (ER) | payer MEDICAID ==
[~2019-09-27] VITALS: Ht 182.9 cm; Wt 79.5 kg
[~2019-09-27 14:15] MED LIST changes: +MULT-449 PO; -MULT1TAB60 PO
[2019-09-27 14:43] VITALS: BP 127/82
--- NOTE | 2019-09-27 15:14 | NUR ---
Right wrist splint removed per order Small healed abrasion noted. no deformity to wrist/minimal swelling
[2019-09-27] MEDS ORDERED: NEOSPORIN OINT. PKT 1 PACKET ONE (15:48)
--- NOTE | 2019-09-27 16:19 | NUR ---
Cms intact post emt applied splint Reviewed care of splint/cms evaluation
== END 2019-09-27 16:21 | disposition home or self-care (01) ==
LOC: ED 16:09
DX: S62.356A Nondisplaced fracture of shaft of fifth metacarpal bone, right hand, initial encounter for closed fracture (principal); X58.XXXA Exposure to other specified factors, initial encounter; Y93.89 Activity, other specified; Y92.89 Other specified places as the place of occurrence of the external cause; Y99.8 Other external cause status
CPT/HCPCS: 29125; 99283

== ENCOUNTER 2020-02-25 01:03 | Emergency (ER) | payer MEDICAID ==
[~2020-02-25] VITALS: Ht 182.9 cm; Wt 73.0 kg
[2020-02-25] MEDS ORDERED: LORazepam 2 MG/ML, 1ML IVPush ONE (01:30)
[2020-02-25] MEDS ORDERED: PROMETHAZINE 25 MG/ML, 1ML IM ONE (01:30)
[2020-02-25] MEDS ORDERED: SODIUM CHLORIDE FLUSH 10ML SYR IVF ONE (01:30)
[2020-02-25] MEDS ORDERED: ONDANSETRON 2MG/ML, 2ML IVPush ONE (01:30)
[2020-02-25] MEDS ORDERED: LORazepam 2 MG/ML, 1ML IVPush PRN (01:30)
[2020-02-25] MEDS ORDERED: SODIUM CHLORIDE 0.9% 1,000ML IVBOLUS ONE (01:30)
[2020-02-25] MEDS ORDERED: THIAMINE 100 MG/ML, 2ML IM ONE (01:30)
[2020-02-25] MEDS ORDERED: PROMETHAZINE 25 MG/ML, 1ML ONE (01:34)
[2020-02-25] MEDS ORDERED: THIAMINE 100 MG/ML, 2ML ONE (01:34)
[2020-02-25] MEDS ORDERED: ONDANSETRON 2MG/ML, 2ML ONE (01:34)
[2020-02-25] MEDS ORDERED: LORazepam 2 MG/ML, 1ML ONE ×2 (01:35→11:46)
[2020-02-25 01:44] LABS: BASOPHILS % (AUTO) 1 % (0-1); EOSINOPHILS % (AUTO) 0 % (1-7); LYMPHOCYTES % (AUTO) 9 % (22-44); MEAN CORPUSCULAR HEMOGLOBIN 30.6 pg (27.5-34.5); MEAN CORPUSCULAR HGB CONC 33.2 g/dL (33.2-36.2); MEAN PLATELET VOLUME 8.1 fL (7.4-10.4); MONOCYTES % (AUTO) 4 % (2-9); NEUTROPHILS % (AUTO) 86 % (42-75); PLATELET COUNT 68 x10^3/uL (130-400); RED BLOOD COUNT 4.56 x10^6/uL (4.38-5.82); RED CELL DISTRIBUTION WIDTH 14.5 % (9.4-14.8)
[2020-02-25 01:55] LABS: ALANINE AMINOTRANSFERASE 46 U/L (12-78); ALBUMIN 3.3 g/dL (3.4-5.0); ANION GAP 13 mmol/L (5-15); CALCIUM 8.1 mg/dL (8.5-10.1); CHLORIDE 99 mmol/L (98-107); CREATININE 0.86 mg/dL (0.7-1.3)
[2020-02-25 01:57] LABS: ALKALINE PHOSPHATASE 64 U/L (45-117); BILIRUBIN,TOTAL 0.7 mg/dL (0.2-1.0); TOTAL PROTEIN 7.3 g/dL (6.4-8.2)
[2020-02-25 02:29] LABS: MD SCAN
--- NOTE | 2020-02-25 04:00 | NUR ---
BIBA. A&o x4, answering questions appropriately. States N/V x1 day, denies abd pain. States he is daily drinker x 1-2 pints of whiskey daily. States last drink "a few hours ago." States he is seeking help finding detox facility. Denies chest pain. Denies SOB. Denies fever/chills. Placed on continuous tele/O2 monitoring. O2 drops to high 80s RA while sleeping. Placed on 4L NC with good effect. NSR noted on monitor. Bed low, side rails up, call rollins within reach
--- NOTE | 2020-02-25 05:15 | NUR ---
Pt continues to rest comfortably on stretcher. Remains on tele/continuous O2 monitoring. Remains on 4L NC. Bed low, side rails up, call rollins within reach
--- NOTE | 2020-02-25 06:38 | NUR ---
Continuing to observe pt d/t one episode of significant desaturation. Remains on continuous O2 monitoring. Sats in high 90s 2L NC. Pt reports feeling very drowsy. Responsive to verbal stimuli. aware
--- NOTE | 2020-02-25 07:22 | NUR ---
RECEIVED BEDSIDE REPORT FROM LENNIE MCCATRHY AT THIS TIME. PT RESTING IN POSITION OF COMFORT. DENIES NEED TO USE RESTROOM AND ANY PAIN. URINAL EMPTIED, 500ML OUTPUT. BREAKFAST TRAY ORDERED. PROVIDED WATER AND PUDDING UNTIL BREAKFAST TRAY ARRIVES PER DR. RADHA NICKERSON. PT TOLERATING PO WELL. VSS. CALL LIGHT IN REACH. FALL PRECAUTIONS IN PLACE.
--- NOTE | 2020-02-25 08:31 | NUR ---
PT PROVIDED BREAKFAST TRAY, EATING AND DRINKING WITHOUT ANY DIFFCULTY. A&OX4. VSS. ST ON MONITOR. CALL LIGHT IN REACH. FALL PRECAUTIONS IN PLACE. DENIES NEED TO USE RESTROOM.
--- NOTE | 2020-02-25 09:31 | NUR ---
MATERIAL DAMAGE APPRAISER ATTEMPTED TO ROADTEST/AMBULATE PT, PT WITH UNSTEADY GAIT, ASSISTANCE REQUIRED AT THIS TIME. REMAINS A&OX4. PULSE OX 94-96% WITH AMBULATION. VSS. ST ON MONITOR. DISCUSSED PT STATUS, AMBULATION WITH DR. GARCIA, AWARE, TO CONTINUE TO MONITOR. FALL PRECUATIONS IN PLACE. SIDE RAILS UPX2.
--- NOTE | 2020-02-25 09:39 | NUR ---
BEDSIDE REPORT AND TRANSFER OF CARE TO LY MCCARTHY AT THIS TIME.
--- NOTE | 2020-02-25 09:53 | NUR ---
BEDSIDE REPORT RECEIVED FROM SHARI BRIGHT FOR TRANSFER OF PATIENT CARE.
--- NOTE | 2020-02-25 09:59 | NUR ---
PATIENT REQUESTING MORE ATIVAN AND ZOFRAN. SPOKE WITH ROMA, OKAY TO GIVE PATIENT MORE ZOFRAN AND WHEN PATIENT IS ABLE TO WALK STEADILY WE CAN GIVE ANOTHER DOSE OF ATIVAN DUE TO PATIENT'S OXYGEN SATURATION DROPPING TO LOW 80'S WITH LAST DOSE OF ATIVAN.
[2020-02-25] MEDS ORDERED: ONDANSETRON ODT 4 MG PO ONE (10:00)
[2020-02-25] MEDS ORDERED: ONDANSETRON ODT 4 MG ONE (10:03)
--- NOTE | 2020-02-25 10:09 | NUR ---
PATIENT MEDICATED PER eMAR, LAYING IN GURNEY, NO SIGNS OF ACUTE DISTRESS, WATCHING TV. CONNECTED TO EXTERNAL GRINDER TENDER, SIDE RAILS UP X2, CALL LIGHT WITHIN REACH.
--- NOTE | 2020-02-25 11:07 | NUR ---
WALKED PATIENT DOWN SNEED, AMBULATED WITH STEADY GAIT. PATIENT STATES HE FEELS READY TO LEAVE.
[2020-02-25 11:40] VITALS: BP 136/81
[2020-02-25] MEDS ORDERED: LORazepam 1MG TABLET ONE (11:52)
[2020-02-25] MEDS ORDERED: LORazepam 1MG TABLET PO ONE (12:00)
--- NOTE | 2020-02-25 12:07 | NUR ---
Patient given discharge instructions and list of community resources in [place] for alcochol detox and they have confirmed that they understand the instructions. Patient given bus pass. Patient ambulatory with steady gait from ED.
== END 2020-02-25 12:08 | disposition home or self-care (01) ==
LOC: ED 08:02
DX: F10.220 Alcohol dependence with intoxication, uncomplicated (principal); R44.3 Hallucinations, unspecified; I51.7 Cardiomegaly; R94.31 Abnormal electrocardiogram [ECG] [EKG]; Y90.9 Presence of alcohol in blood, level not specified
CPT/HCPCS: 36415; 80053; 80307; 83690; 85025; 93005; 96361; 96372; 96374; 96375; 99285; J2060; J2405; J2550; J3411; J7030; Q0162

== ENCOUNTER 2020-03-20 01:32 | Emergency (ER) | payer MEDICAID, OTHER ==
[~2020-03-20] VITALS: Ht 182.9 cm; Wt 78.0 kg
--- NOTE | 2020-03-20 01:34 | NUR ---
pt bib [facility] to room 31, bottle of vodka removed, pt urinated in pants, lying comfortably in gurney. c/o bleeding from hand.
[2020-03-20 01:39] VITALS: BP 126/83
[2020-03-20] MEDS ORDERED: LORazepam 0.5MG TABLET PO ONE (02:00)
[2020-03-20] MEDS ORDERED: THIAMINE 100MG TABLET PO ONE (02:00)
--- NOTE | 2020-03-20 02:15 | NUR ---
pt up in room trying to drink the vodka he brought in. ERP updated. Ativan held. Pt workup complete at this time, pt up for d/c.
== END 2020-03-20 02:31 | disposition home or self-care (01) ==
LOC: ED 02:15
DX: F10.129 Alcohol abuse with intoxication, unspecified (principal); S61.412A Laceration without foreign body of left hand, initial encounter; Y90.9 Presence of alcohol in blood, level not specified; Z59.0 Homelessness; X58.XXXA Exposure to other specified factors, initial encounter; Y93.89 Activity, other specified; Y92.89 Other specified places as the place of occurrence of the external cause; Y99.8 Other external cause status
CPT/HCPCS: 99283

== ENCOUNTER 2020-04-12 05:49 | Emergency (ER) | payer OTHER, MEDICAID ==
[~2020-04-12] VITALS: Ht 182.9 cm; Wt 82.6 kg
[2020-04-12] MEDS ORDERED: ONDANSETRON 2MG/ML, 2ML ONE (06:18)
[2020-04-12] MEDS ORDERED: THIAMINE 100MG TABLET ONE (06:19)
[2020-04-12] MEDS ORDERED: LORazepam 2 MG/ML, 1ML ONE ×2 (06:20→07:57)
[2020-04-12] MEDS: LORazepam 2 MG/ML, 1ML IVPush PRN ×2 (06:25→08:12)
[2020-04-12] MEDS ORDERED: ONDANSETRON 2MG/ML, 2ML IVPush ONE (06:30)
[2020-04-12] MEDS ORDERED: THIAMINE 100MG TABLET PO ONE (06:30)
[2020-04-12] MEDS ORDERED: SODIUM CHLORIDE FLUSH 10ML SYR IVF ONE (06:30)
[2020-04-12] MEDS ORDERED: SODIUM CHLORIDE 0.9% 1,000ML IVBOLUS ONE (06:30)
--- NOTE | 2020-04-12 06:30 | NUR ---
IVF infusing wide open, side rails up, on cont pulse ox. Slightly tremulous, HR 95. Call rollins in reach, aidet provided. Labs sent.
[2020-04-12 06:32] LABS: BASOPHILS % (AUTO) 1 % (0-1); EOSINOPHILS % (AUTO) 1 % (1-7); LYMPHOCYTES % (AUTO) 16 % (22-44); MEAN CORPUSCULAR HEMOGLOBIN 29.1 pg (27.5-34.5); MEAN CORPUSCULAR HGB CONC 33.1 g/dL (33.2-36.2); MONOCYTES % (AUTO) 6 % (2-9); NEUTROPHILS % (AUTO) 77 % (42-75); PLATELET COUNT 429 x10^3/uL (130-400); RED BLOOD COUNT 3.29 x10^6/uL (4.38-5.82); RED CELL DISTRIBUTION WIDTH 18.7 % (9.4-14.8)
[2020-04-12 06:39] LABS: ALBUMIN 3.5 g/dL (3.4-5.0); ANION GAP 7 mmol/L (5-15); CALCIUM 8.3 mg/dL (8.5-10.1); CHLORIDE 104 mmol/L (98-107); CREATININE 0.94 mg/dL (0.7-1.3)
[2020-04-12 06:51] LABS: MD NO
--- NOTE | 2020-04-12 06:54 | NUR ---
Report to SHARI Santiago.
[2020-04-12] MEDS ORDERED: PANTOPRAZOLE 40 MG IV IVPush ONE (07:30)
[2020-04-12] MEDS ORDERED: PANTOPRAZOLE 40 MG IV ONE (07:56)
[2020-04-12] MEDS ORDERED: CEFTRIAXONE PMX 1GM/50ML 50 ML ONE (07:56)
[2020-04-12] MEDS ORDERED: CEFTRIAXONE PMX 1GM/50ML 50 ML IV ONE (08:00)
--- NOTE | 2020-04-12 08:18 | NUR ---
PT MEDICATED PER MAR
[2020-04-12 08:31] LABS: INTERNATIONAL NORMALIZED RATIO 1.04 (0.93-1.1)
--- NOTE | 2020-04-12 13:54 | NUR ---
Note lisa in EDM - 04/12/20 at 1355 by ULISSES PT OUT OF BED AND DOWN SNEED TALKING TO MD, STATING SHE WANTS TO LEAVE NOW. PT STATES "IT IS NOT YOUR FAULT. MY ANXIETY IS GOING THROUGH THE ROOF SINCE I GOT MEDICATED." PT DOES NOT WANT TO STAY FOR DISCHARGE PAPERS.
--- NOTE | 2020-04-12 14:14 | NUR ---
OBTAINED SIGNATURE FOR REQUEST FOR COVID HOUSING FROM [facility]
[2020-04-12 15:54] VITALS: BP 114/72
--- NOTE | 2020-04-12 16:15 | NUR ---
PT REC'VD DISCHARGE INSTRUCTIONS AND EDUCATION. PT HAD NO FURTHER QUESTIONS. PT GIVEN TAXI VOUCHER. PT AMBULATED TO [place] AREA, STEADY GAIT.
== END 2020-04-12 16:53 | disposition home or self-care (01) ==
LOC: ED 06:15
DX: F10.139 Alcohol abuse with withdrawal, unspecified (principal); Z20.828 Contact with and (suspected) exposure to other viral communicable diseases; K29.20 Alcoholic gastritis without bleeding; J69.0 Pneumonitis due to inhalation of food and vomit; D62 Acute posthemorrhagic anemia; R06.02 Shortness of breath; R05 Cough; R50.9 Fever, unspecified; M79.10 Myalgia, unspecified site; R11.2 Nausea with vomiting, unspecified; R06.00 Dyspnea, unspecified; G40.909 Epilepsy, unspecified, not intractable, without status epilepticus; Z87.891 Personal history of nicotine dependence; Y90.0 Blood alcohol level of less than 20 mg/100 ml
CPT/HCPCS: 36415; 71045; 80048; 82040; 85025; 85610; 87635; 96361; 96365; 96375; 96376; 99285; C9113; J0696; J2060; J2405; J7030

== ENCOUNTER 2020-10-11 23:40 | Emergency (ER) | payer MEDICAID ==
[~2020-10-11] VITALS: Ht 182.9 cm; Wt 79.8 kg
[~2020-10-11 23:40] MED LIST changes: -FOLI-17 PO; -FOLI0.8T2 PO; +FOLI0.8T5 PO; +FOLI1TAB32 PO; +MULT-482 PO; -MULT-750 PO
--- NOTE | 2020-10-11 23:46 | NUR ---
PT BIB EMS, PT STATES HE IS A HEAVY ETOH USER, WAS SOBER FOR 3 MONTHS AND THEN WENT ON A 10 DAY BINGE AND DRANK 6 HIGH ALCOHL BEERS AND VODKA A DAY. 4 MG ODT ZOFRAN ENROUTE, UNABLE TO GET PIV ACCESS. 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 PT PLACED ON ALL MONITORS, SAFETY MEASURES IN PLACE. AWAITING ERP EVAL
[2020-10-12] MEDS ORDERED: SODIUM CHLORIDE FLUSH 10ML SYR IVF ONE
[2020-10-12] MEDS ORDERED: ONDANSETRON 2MG/ML, 2ML IVPush ONE
[2020-10-12] MEDS ORDERED: MAGNESIUM SULFATE 1 GM, THIAMINE 100 MG, FOLIC ACID 1 MG, MVI ADULT 10 ML in SODIUM CHL... IV ONE
[2020-10-12] MEDS ORDERED: SODIUM CHLORIDE 0.9% 1,000ML IVBOLUS ONE
[2020-10-12] MEDS ORDERED: ONDANSETRON 2MG/ML, 2ML ONE (00:04)
[2020-10-12] MEDS ORDERED: LORazepam 2 MG/ML, 1ML ONE ×2 (00:04→00:56)
[2020-10-12 00:06] LABS: BASOPHILS % (AUTO) 1 % (0-1); EOSINOPHILS % (AUTO) 1 % (1-7); LYMPHOCYTES % (AUTO) 26 % (22-44); MEAN CORPUSCULAR HEMOGLOBIN 28.6 pg (27.5-34.5); MEAN PLATELET VOLUME 7.1 fL (7.4-10.4); MONOCYTES % (AUTO) 5 % (2-9); NEUTROPHILS % (AUTO) 67 % (42-75); PLATELET COUNT 230 x10^3/uL (130-400); RED BLOOD COUNT 4.52 x10^6/uL (4.38-5.82); RED CELL DISTRIBUTION WIDTH 18.5 % (9.4-14.8)
[2020-10-12] MEDS: LORazepam 2 MG/ML, 1ML IVPush PRN ×2 (00:07→00:59)
[2020-10-12 00:23] LABS: ALANINE AMINOTRANSFERASE 63 U/L (12-78); ALBUMIN 3.5 g/dL (3.4-5.0); ANION GAP 12 mmol/L (5-15); CALCIUM 8.4 mg/dL (8.5-10.1); CHLORIDE 102 mmol/L (98-107); CREATININE 1.07 mg/dL (0.7-1.3)
[2020-10-12 00:25] LABS: ALKALINE PHOSPHATASE 78 U/L (45-117); BILIRUBIN,TOTAL 0.3 mg/dL (0.2-1.0); TOTAL PROTEIN 7.8 g/dL (6.4-8.2)
--- NOTE | 2020-10-12 00:25 | NUR ---
Break RN: patient resting in [facility] with no complaints at this time. Respirations even and unlabored. Initiated "banana bag" per jun.
--- NOTE | 2020-10-12 02:37 | NUR ---
pt ambulated steady without assistance to restroom. pt provided snacks and water per request
[2020-10-12 03:19] VITALS: BP 113/72
== END 2020-10-12 03:21 | disposition home or self-care (01) ==
LOC: ED 10-12 00:48
DX: F10.220 Alcohol dependence with intoxication, uncomplicated (principal); Z72.9 Problem related to lifestyle, unspecified; F17.210 Nicotine dependence, cigarettes, uncomplicated; Y90.0 Blood alcohol level of less than 20 mg/100 ml
CPT/HCPCS: 36415; 80053; 80320; 83690; 85025; 96365; 96366; 96375; 96376; 99284; 99406; J2060; J2405; J3411; J3475; J7030; G0480

== ENCOUNTER 2021-01-04 00:51 | Emergency (ER) | payer MEDICAID ==
[~2021-01-04] VITALS: Ht 182.9 cm; Wt 76.0 kg
[2021-01-04] MEDS ORDERED: ONDANSETRON 2MG/ML, 2ML IVPush ONE (01:30)
[2021-01-04] MEDS ORDERED: SODIUM CHLORIDE FLUSH 10ML SYR IVF ONE (01:30)
[2021-01-04] MEDS ORDERED: SODIUM CHLORIDE 0.9% 1,000ML IVBOLUS ONE (01:30)
[2021-01-04 01:43] LABS: BASOPHILS % (AUTO) 1 % (0-1); EOSINOPHILS % (AUTO) 1 % (1-7); LYMPHOCYTES % (AUTO) 31 % (22-44); MEAN CORPUSCULAR HEMOGLOBIN 29.9 pg (27.5-34.5); MEAN PLATELET VOLUME 7.2 fL (7.4-10.4); MONOCYTES % (AUTO) 10 % (2-9); NEUTROPHILS % (AUTO) 57 % (42-75); PLATELET COUNT 315 x10^3/uL (130-400); RED BLOOD COUNT 4.45 x10^6/uL (4.38-5.82); RED CELL DISTRIBUTION WIDTH 17.9 % (9.4-14.8)
[2021-01-04 01:47] LABS: ALANINE AMINOTRANSFERASE 63 U/L (12-78); ALBUMIN 3.6 g/dL (3.4-5.0); ANION GAP 16 mmol/L (5-15); CALCIUM 8.5 mg/dL (8.5-10.1); CHLORIDE 102 mmol/L (98-107)
[2021-01-04 01:49] LABS: ALKALINE PHOSPHATASE 63 U/L (45-117); BILIRUBIN,TOTAL 0.6 mg/dL (0.2-1.0); TOTAL PROTEIN 7.8 g/dL (6.4-8.2)
[2021-01-04] MEDS ORDERED: ONDANSETRON ODT 4 MG ONE (02:49)
[2021-01-04] MEDS ORDERED: FAMOTIDINE 20 MG TABLET ONE (02:49)
--- NOTE | 2021-01-04 02:51 | NUR ---
COLD ROLL INSPECTOR: PT. MEDICATED WITH PO MEDS FROM TRIAGE PER DR. COLON WHILE PT. WAITS FOR ROOM.
[2021-01-04] MEDS ORDERED: FAMOTIDINE 20 MG TABLET PO ONE (03:00)
[2021-01-04] MEDS ORDERED: ONDANSETRON ODT 4 MG PO ONE (03:00)
--- NOTE | 2021-01-04 03:30 | NUR ---
Patient reports nausea/vomiting x3days after drinking 6-8 10% beers a day. Patient states last drink was 3 days ago. Denies nausea at time of being placed in room. Patient ambulated to room with a steady gate.
[2021-01-04] MEDS ORDERED: ONDANSETRON 2MG/ML, 2ML ONE (03:33)
--- NOTE | 2021-01-04 03:52 | NUR ---
Patient medicated per JUN. NAD at this time. Patient resting on gurney, requesting lights off to rest because he "hasn't slept in 3-4 days"
[2021-01-04] MEDS ORDERED: LORazepam 2 MG/ML, 1ML IVPush ONE (05:30)
[2021-01-04 07:02] VITALS: BP 101/67
--- NOTE | 2021-01-04 07:03 | NUR ---
PT REC'VD DISCHARGE INSTRUCTIONS AND EDUCATION. PT HAD NO FURTHER QUESTIONS.
== END 2021-01-04 07:44 | disposition home or self-care (01) ==
LOC: ED 03:24
DX: F10.239 Alcohol dependence with withdrawal, unspecified (principal); R45.4 Irritability and anger; F41.9 Anxiety disorder, unspecified; Y90.0 Blood alcohol level of less than 20 mg/100 ml
CPT/HCPCS: 36415; 80053; 80320; 83690; 85025; 96361; 96374; 96375; 99285; J2060; J2405; J7030; Q0162; 99284; G0480